=== PATIENT | female | born 1975 | race Caucasian/White ===

== ENCOUNTER 2016-08-24 18:15 | Emergency (ER) | payer OTHER ==
[~2016-08-24 18:15] MED LIST: /PREG100CA PO; ATOR1TAB19 PO; AZEL0.1S; Astepro; BACL10TA2 OR; CETI10TA OR; CRAN400T3 PO; CYCL10TA PO; FEXO30TA OR; GABA300C2 PO; HORIZANT PO; LISI5TAB PO; LYRI75CA PO; METF500T PO; MOBI15TA PO; NEUR400C OR; OMEP40CA2 PO; ROPI0.25 PO; SERT100T OR; TRAM37.5 PO; ULTR50TA PO; VERA180C3 OR; VERAMYST; Vitamin D PO; [UNRECOGNIZED DRUG - OTHER] OU; [UNRECOGNIZED DRUG - OTHER] SQ; colace PO; vitaminD PO; zoloft PO
[2016-08-24] MEDS ORDERED: traMADol 50 MG TAB As Ordered ONE ×2 (19:10→20:20)
--- NOTE | 2016-08-24 20:35 | EDDOCDS ---
Nurse's Notes [facility] Name: Adrianne Quinn Age: 41 yrs Sex: Female : 1975 Arrival Date: 08/24/2016 Time: 18:15 Bed PR [facility] MD: Diagnosis: Contusion of right elbow Presentation: 08/24 18:20 Presenting complaint: Patient states: Tripped over a pet gait last night injuring right mlb1 elbow. Adult Sepsis Screening: The patient does not have new or worsening altered mentation. Patient's respiratory rate is less than 22. Systolic blood pressure is greater than 100. Patient has a qSOFA score of 0- Negative Sepsis Screen. Suicide/Homicide risk assessment- the patient denies having any suicidal and/or homicidal ideations and does not present with any other emotional, behavioral or mental health complaints. 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 Transition of care: patient was not received from another setting of care. 18:20 Acuity: LUCI Level 4 mlb1 18:20 Method Of Arrival: Walkin/Carried/Asstd mlb1 Triage Assessment: 18:26 General: Appears in no apparent distress, Behavior is appropriate for age, cooperative. mlb1 Pain: Location: right elbow Pain currently is 8 out of 10 on a pain scale. HIV screening NA for this visit Offered previously. Historical: - Allergies: PENICILLINS; Avelox; SULFA (SULFONAMIDES); - Home Meds: 1. Victoza 2-Kishan subcutaneous subcutaneous 1.2 mL once daily 2. metformin 500 mg Oral tr24 1 tab once daily 3. Invokana 100 mg oral tab 1 tab once daily 4. lisinopril 5 mg Oral tab 1 tab once daily 5. atorvastatin 20 mg oral tab 1 tab once daily 6. Zoloft 150 mg Oral once daily 7. vitamin D 2000 unit daily 8. ropinirole 1 mg Qam 2mg Q pm oral tab 1 tab daily 9. omeprazole 20 mg Oral cpDR 1 cap once daily 10. Premarin 0.625 mg Oral tab 1 tab once daily - PMHx: Hypertension; Diabetes - NIDDM: controlled; restless leg syndrome; High Cholesterol; - PSHx: right foot spur; Hysterectomy; Sinus Surgery; Carpal Tunnel Repair- Right; right knee; - Social history: Smoking status: Patient states was never smoker of tobacco. No barriers to communication noted, The patient speaks fluent Latvian, Speaks appropriately for age. - Family history: Not pertinent. - : The pt / caregiver states he / she is not on anticoagulants. Home medication list is obtained from the patient. - Exposure Risk Screening:: None identified. Screenin:33 Screening information is obtained from the patient. Fall risk: No risks identified. ms18 Assistance ADL's: requires no assistance with activities of daily living. Abuse/DV Screen: The patient / caregiver reports he/she is: not in a situation that causes fear, pain or injury. Nutritional screening: No deficits noted. Advance Directives: There is no living will. home support is adequate. Assessment: 20:33 General: Appears in no apparent distress, comfortable, Behavior is appropriate for age, ms18 cooperative, pleasant. Pain: Location: right elbow Pain currently is 4 out of 10 on a pain scale. Neurological: No deficits noted. Respiratory: Airway is patent Respiratory effort is even, unlabored. Derm: Skin is pink, warm & dry. normal. Musculoskeletal: Range of motion intact in all extremities. No deformity noted Swelling absent. Vital Signs: 18:16 BP 151 / 87; Pulse 101; Resp 17; Temp 98.0(O); Pulse Ox 100% on R/A; Weight 108.41 kg lr2 (R); Height 5 ft. 3 in. (160.02 cm) (R); Pain 8/10; 18:24 BP 132 / 68 RA Sitting (auto/reg); Pulse 92; Resp 18; Temp 98.9(O); Pulse Ox 100% on jrd R/A; Weight 65.32 kg (R); Height 5 ft. 5 in. (165.10 cm) (R); Pain 0/10; 20:16 BP 136 / 67; Pulse 87; Resp 18; Temp 97.6(T); Pulse Ox 97% on R/A; Pain 6/10; ar3 18:24 Body Mass Index 23.96 (65.32 kg, 165.10 cm) rust Vitals: 18:16 Log In Time: August 24, 2016 at 18:15. lr2 18:24 Log In Time: August 24, 2016 at 18:16. rust ED Course: 18:16 Patient visited by Yamileth Zapata. lr2 18:16 Patient moved to Waiting lr2 18:17 Patient moved to Pre RCE lr2 18:20 Patient visited by Elpidio Martinez, NAEL. mlb1 18:20 Triage Initiated mlb1 18:25 Patient visited by Shun Greenwood, IDALIA. jrd 18:26 Patient visited by Elpidio Martinez, NAEL. mlb1 18:38 Patient moved to Triage 1 ms18 18:57 Geovany Gonzalez RPA-C is PHCP. ck7 18:57 Joce Luna DO is Attending Physician. ck7 18:57 Patient visited by Geovany Gonzalez RPA-C. ck7 19:14 Patient moved to TR1 ttb 19:17 [facility] Payment Agreement was scanned into [employer] and attached to record. jp5 19:35 Patient visited by Geovany Gonzalez RPA-C. ck7 20:12 Patient visited by Geovany Gonzalez RPA-C. ck7 20:12 Patient moved to PR1 / 25 lf1 20:17 Patient visited by Hellen Mcfadden PCA. ar3 20:17 [facility] is Referral Physician. ck7 20:33 The patient / caregiver is instructed regarding the plan of care and ED course. ms18 Accompanied by Significant Other, Patient has correct armband on for positive identification. Property sent home with patient. :Personal belongings accompany Pt. 20:33 No IV's were initiated during this patient's visit. No procedures done that require ms18 assistance. Administered Medications: 19:11 Drug: traMADol 50 mg [tramadol 50 mg tablet (1 tabs)] Route: PO; ttb 20:32 Follow up: Response: No Adverse Reaction; Pain is decreased ms18 20:32 Drug: traMADol 50mg- 4 pack 1 packets [tramadol 50 mg tablet (1 tabs)] {Co-Signature: ms18 lf1 (Ambar Espinal RN).} Route: PO; 20:32 Follow up: Response: Med's dispensed home ms18 Order Results: There are currently no results for this order. Outcome: 20:17 Discharge ordered by Provider. ck7 20:33 Discharge Assessment: Patient awake, alert and oriented x 3. No cognitive and/or ms18 functional deficits noted. Patient verbalized understanding of disposition instructions. patient administered narcotics - no. The following High Risk Discharge criteria are identified: None. Discharged to home ambulatory, with significant other. Condition: good Condition: stable Condition: improved. Discharge instructions given to patient, Instructed on discharge instructions, follow up and referral plans. medication usage, no driving heavy equipment, Demonstrated understanding of instructions, medications, Pt was receptive of discharge instructions/ teaching. Prescriptions given X 1. No special radiology studies were completed. 20:35 Patient left the ED. ms18 Signatures: Elpidio Martinez RN RN mlb1 Ambar Espinal,RN RN lf1 Hellen Mcfadden, THICKENER OPERATOR THICKENER OPERATOR ar3 Geovany Gonzalez, RPA-C RPA-Cck7 Aspen Sauceda RN RN khrisb Nerissa GonzalezRN RN ms18 Shun Greenwood, THICKENER OPERATOR THICKENER OPERATOR Jose Frost jp5 Yamileth Zapata lr2 Ambar Espinal RN lf1 FREEMAN
--- NOTE | 2016-08-24 20:35 | EDDOCDS ---
Physician Documentation [facility] Name: Adrianne Quinn Age: 41 yrs Sex: Female : 1975 Arrival Date: 08/24/2016 Time: 18:15 Bed PR Private MD: Disposition: 08/24/16 20:17 Discharged to Home/Self Care. Impression: Contusion of right elbow. - Condition is Stable. - Discharge Instructions: Elbow Contusion. - Prescriptions for Ultram 50 mg Oral Tablet - take 1 tablet by ORAL route every [address] HEWITT MDD: 4 tabs; 16 tablet. - Medication Reconciliation, Local Pharmacy Hours form. - Follow up: [facility]; When: 2 - 3 days; Reason: Recheck today's complaints, Continuance of care. - Problem is new. - Symptoms have improved. - Notes: USE ULTRAM, MATHEUS WRAP AND SLING INSTRUCTED, FOLLOW UP WITH [facility] IN 2-3 DAYS, RETURN TO THE ER IF THE SYMPTOMS WORSEN OR BECOME CONCERNING Historical: - Allergies: PENICILLINS; Avelox; SULFA (SULFONAMIDES); - Home Meds: 1. Victoza 2-Kishan subcutaneous subcutaneous 1.2 mL once daily 2. metformin 500 mg Oral tr24 1 tab once daily 3. Invokana 100 mg oral tab 1 tab once daily 4. lisinopril 5 mg Oral tab 1 tab once daily 5. atorvastatin 20 mg oral tab 1 tab once daily 6. Zoloft 150 mg Oral once daily 7. vitamin D 2000 unit daily 8. ropinirole 1 mg Qam 2mg Q pm oral tab 1 tab daily 9. omeprazole 20 mg Oral cpDR 1 cap once daily 10. Premarin 0.625 mg Oral tab 1 tab once daily - PMHx: Hypertension; Diabetes - NIDDM: controlled; restless leg syndrome; High Cholesterol; - PSHx: right foot spur; Hysterectomy; Sinus Surgery; Carpal Tunnel Repair- Right; right knee; - Social history: Smoking status: Patient states was never smoker of tobacco. No barriers to communication noted, The patient speaks fluent Amharic, Speaks appropriately for age. - Family history: Not pertinent. - : The pt / caregiver states he / she is not on anticoagulants. Home medication list is obtained from the patient. - Exposure Risk Screening:: None identified. Vital Signs: 08/24 18:16 BP 151 / 87; Pulse 101; Resp 17; Temp 98.0(O); Pulse Ox 100% on R/A; Weight 108.41 kg / lr2 239 lbs (R); Height 5 ft. 3 in. (160.02 cm) (R); Pain 8/10; 18:24 BP 132 / 68 RA Sitting (auto/reg); Pulse 92; Resp 18; Temp 98.9(O); Pulse Ox 100% on jrd R/A; Weight 65.32 kg / 144.01 lbs (R); Height 5 ft. 5 in. (165.10 cm) (R); Pain 0/10; 20:16 BP 136 / 67; Pulse 87; Resp 18; Temp 97.6(T); Pulse Ox 97% on R/A; Pain 6/10; ar3 18:24 Body Mass Index 23.96 (65.32 kg, 165.10 cm) jrd MDM: 19:07 traMADol 50 mg PO once ordered. ck7 19:08 Elbow, Complete Ordered. EDKS 19:17 [facility] Payment Agreement was scanned into [employer] and attached to record. jp5 19:17 Financial registration complete. jp5 20:16 Matheus Wrap ordered. ck7 20:16 Sling ordered. ck7 20:16 traMADol 50mg- 4 pack 1 packets PO Per package directions; Dispense with patient. Take ck7 per package instructions. ordered. Administered Medications: 19:11 Drug: traMADol 50 mg [tramadol 50 mg tablet (1 tabs)] Route: PO; ttb 20:32 Follow up: Response: No Adverse Reaction; Pain is decreased ms18 20:32 Drug: traMADol 50mg- 4 pack 1 packets [tramadol 50 mg tablet (1 tabs)] {Co-Signature: ms18 lf1 (Ambar Espinal RN).} Route: PO; 20:32 Follow up: Response: Med's dispensed home ms18 Signatures: Dispatcher [employer] EDMS Elpidio Martinez, RN RN mlb1 Geovany Gonzalez, RPA-C RPA-Cck7 Nerissa Gonzalez RN RN ms18 Jose Villegas jp5 Aspen Sauceda RN ttb Ambar Espinal RN lf1 The chart was reviewed and I authenticate all verbal orders and agree with the evaluation and treatment provided.Attachments: 19:17 [facility] Payment Agreement jp5 MTDD
--- NOTE | 2016-08-25 00:38 | REP ---
Clinical: Deformity and swelling . Technique: AP, lateral, bilateral oblique views of the right elbow. Findings: No acute fracture or dislocation is appreciated. Joint spaces and surrounding soft tissues demonstrate mild age-related changes. Lateral view demonstrates normal positioning to the anterior and posterior fat pads without evidence for effusion/hemarthrosis. No subcutaneous emphysema or foreign body identified. Impression: No acute fracture or dislocation. Mild age-related changes. Signed by Venancio Melton MD 08/25/2016 12:29 A
--- NOTE | 2016-08-26 21:36 | EDDOCDS ---
Physician Documentation [facility] Name: Adrianne Quinn Age: 41 yrs Sex: Female : 1975 Arrival Date: 08/24/2016 Time: 18:15 Bed PR Private MD: Disposition: 08/24/16 20:17 Discharged to Home/Self Care. Impression: Contusion of right elbow. - Condition is Stable. - Discharge Instructions: Elbow Contusion. - Prescriptions for Ultram 50 mg Oral Tablet - take 1 tablet by ORAL route every [address] HEWITT MDD: 4 tabs; 16 tablet. - Medication Reconciliation, Local Pharmacy Hours form. - Follow up: [facility]; When: 2 - 3 days; Reason: Recheck today's complaints, Continuance of care. - Problem is new. - Symptoms have improved. - Notes: USE ULTRAM, MATHEUS WRAP AND SLING INSTRUCTED, FOLLOW UP WITH [facility] IN 2-3 DAYS, RETURN TO THE ER IF THE SYMPTOMS WORSEN OR BECOME CONCERNING Historical: - Allergies: PENICILLINS; Avelox; SULFA (SULFONAMIDES); - Home Meds: 1. Victoza 2-Kishan subcutaneous subcutaneous 1.2 mL once daily 2. metformin 500 mg Oral tr24 1 tab once daily 3. Invokana 100 mg oral tab 1 tab once daily 4. lisinopril 5 mg Oral tab 1 tab once daily 5. atorvastatin 20 mg oral tab 1 tab once daily 6. Zoloft 150 mg Oral once daily 7. vitamin D 2000 unit daily 8. ropinirole 1 mg Qam 2mg Q pm oral tab 1 tab daily 9. omeprazole 20 mg Oral cpDR 1 cap once daily 10. Premarin 0.625 mg Oral tab 1 tab once daily - PMHx: Hypertension; Diabetes - NIDDM: controlled; restless leg syndrome; High Cholesterol; - PSHx: right foot spur; Hysterectomy; Sinus Surgery; Carpal Tunnel Repair- Right; right knee; - Social history: Smoking status: Patient states was never smoker of tobacco. No barriers to communication noted, The patient speaks fluent Czech, Speaks appropriately for age. - Family history: Not pertinent. - : The pt / caregiver states he / she is not on anticoagulants. Home medication list is obtained from the patient. - Exposure Risk Screening:: None identified. Vital Signs: 08/24 18:16 BP 151 / 87; Pulse 101; Resp 17; Temp 98.0(O); Pulse Ox 100% on R/A; Weight 108.41 kg / lr2 239 lbs (R); Height 5 ft. 3 in. (160.02 cm) (R); Pain 8/10; 18:24 BP 132 / 68 RA Sitting (auto/reg); Pulse 92; Resp 18; Temp 98.9(O); Pulse Ox 100% on jrd R/A; Weight 65.32 kg / 144.01 lbs (R); Height 5 ft. 5 in. (165.10 cm) (R); Pain 0/10; 20:16 BP 136 / 67; Pulse 87; Resp 18; Temp 97.6(T); Pulse Ox 97% on R/A; Pain 6/10; ar3 18:24 Body Mass Index 23.96 (65.32 kg, 165.10 cm) jrd MDM: 19:07 traMADol 50 mg PO once ordered. ck7 19:08 Elbow, Complete Ordered. EDMS 19:17 [facility] Payment Agreement was scanned into [employer] and attached to record. jp5 19:17 Financial registration complete. jp5 20:16 Matheus Wrap ordered. ck7 20:16 Sling ordered. ck7 20:16 traMADol 50mg- 4 pack 1 packets PO Per package directions; Dispense with patient. Take ck7 per package instructions. ordered. 08/25 10:31 T-Sheet-- Draft Copy was scanned into [employer] and attached to record. gb Administered Medications: 08/24 19:11 Drug: traMADol 50 mg [tramadol 50 mg tablet (1 tabs)] Route: PO; ttb 20:32 Follow up: Response: No Adverse Reaction; Pain is decreased ms18 20:32 Drug: traMADol 50mg- 4 pack 1 packets [tramadol 50 mg tablet (1 tabs)] {Co-Signature: ms18 lf1 (Ambar Espinal RN).} Route: PO; 20:32 Follow up: Response: Med's dispensed home ms18 Signatures: Dispatcher MedHost EDMS Lois Morfin, Reg Reg gb Elpidio Martinez, RN RN mlb1 Geovany Gonzalez, RPA-C RPA-Cck7 Nerissa Gonzalez,RN RN ms18 Jose Villegas jp5 Aspen Sauceda RN ttb Ambar Espinal RN lf1 The chart was reviewed and I authenticate all verbal orders and agree with the evaluation and treatment provided.Attachments: 19:17 [facility] Payment Agreement jp5 08/25 10:31 T-Sheet-- Draft Copy gb Chart Complete MTDD
--- NOTE | 2016-08-26 21:36 | EDDOCDS ---
Physician Documentation [facility] Name: Adrianne Quinn Age: 41 yrs Sex: Female : 1975 Arrival Date: 08/24/2016 Time: 18:15 Bed PR Private MD: Disposition: 08/24/16 20:17 Discharged to Home/Self Care. Impression: Contusion of right elbow. - Condition is Stable. - Discharge Instructions: Elbow Contusion. - Prescriptions for Ultram 50 mg Oral Tablet - take 1 tablet by ORAL route every [address] HEWITT MDD: 4 tabs; 16 tablet. - Medication Reconciliation, Local Pharmacy Hours form. - Follow up: [facility]; When: 2 - 3 days; Reason: Recheck today's complaints, Continuance of care. - Problem is new. - Symptoms have improved. - Notes: USE ULTRAM, MATHEUS WRAP AND SLING INSTRUCTED, FOLLOW UP WITH [facility] IN 2-3 DAYS, RETURN TO THE ER IF THE SYMPTOMS WORSEN OR BECOME CONCERNING Historical: - Allergies: PENICILLINS; Avelox; SULFA (SULFONAMIDES); - Home Meds: 1. Victoza 2-Kishan subcutaneous subcutaneous 1.2 mL once daily 2. metformin 500 mg Oral tr24 1 tab once daily 3. Invokana 100 mg oral tab 1 tab once daily 4. lisinopril 5 mg Oral tab 1 tab once daily 5. atorvastatin 20 mg oral tab 1 tab once daily 6. Zoloft 150 mg Oral once daily 7. vitamin D 2000 unit daily 8. ropinirole 1 mg Qam 2mg Q pm oral tab 1 tab daily 9. omeprazole 20 mg Oral cpDR 1 cap once daily 10. Premarin 0.625 mg Oral tab 1 tab once daily - PMHx: Hypertension; Diabetes - NIDDM: controlled; restless leg syndrome; High Cholesterol; - PSHx: right foot spur; Hysterectomy; Sinus Surgery; Carpal Tunnel Repair- Right; right knee; - Social history: Smoking status: Patient states was never smoker of tobacco. No barriers to communication noted, The patient speaks fluent Mongolian, Speaks appropriately for age. - Family history: Not pertinent. - : The pt / caregiver states he / she is not on anticoagulants. Home medication list is obtained from the patient. - Exposure Risk Screening:: None identified. Vital Signs: 08/24 18:16 BP 151 / 87; Pulse 101; Resp 17; Temp 98.0(O); Pulse Ox 100% on R/A; Weight 108.41 kg / lr2 239 lbs (R); Height 5 ft. 3 in. (160.02 cm) (R); Pain 8/10; 18:24 BP 132 / 68 RA Sitting (auto/reg); Pulse 92; Resp 18; Temp 98.9(O); Pulse Ox 100% on jrd R/A; Weight 65.32 kg / 144.01 lbs (R); Height 5 ft. 5 in. (165.10 cm) (R); Pain 0/10; 20:16 BP 136 / 67; Pulse 87; Resp 18; Temp 97.6(T); Pulse Ox 97% on R/A; Pain 6/10; ar3 18:24 Body Mass Index 23.96 (65.32 kg, 165.10 cm) jrd MDM: 19:07 traMADol 50 mg PO once ordered. ck7 19:08 Elbow, Complete Ordered. EDMS 19:17 [facility] Payment Agreement was scanned into [employer] and attached to record. jp5 19:17 Financial registration complete. jp5 20:16 Matheus Wrap ordered. ck7 20:16 Sling ordered. ck7 20:16 traMADol 50mg- 4 pack 1 packets PO Per package directions; Dispense with patient. Take ck7 per package instructions. ordered. 08/25 10:31 T-Sheet-- Draft Copy was scanned into [employer] and attached to record. gb Administered Medications: 08/24 19:11 Drug: traMADol 50 mg [tramadol 50 mg tablet (1 tabs)] Route: PO; ttb 20:32 Follow up: Response: No Adverse Reaction; Pain is decreased ms18 20:32 Drug: traMADol 50mg- 4 pack 1 packets [tramadol 50 mg tablet (1 tabs)] {Co-Signature: ms18 lf1 (Ambar Espinal RN).} Route: PO; 20:32 Follow up: Response: Med's dispensed home ms18 Signatures: Dispatcher [employer] EDMS Lois Morfin, Reg Reg gb Elpidio Martinez, RN RN mlb1 Geovany Gonzalez, RPA-C RPA-Cck7 Nerissa Gonzalez,RN RN ms18 Jose Villegas jp5 Aspen aSuceda RN ttb Ambar Espinal RN lf1 The chart was reviewed and I authenticate all verbal orders and agree with the evaluation and treatment provided.Attachments: 19:17 [facility] Payment Agreement jp5 08/25 10:31 T-Sheet-- Draft Copy gb Chart Complete MTDD
--- NOTE | 2016-08-26 21:36 | EDDOCDS ---
Nurse's Notes [facility] Name: Adrianne Quinn Age: 41 yrs Sex: Female : 1975 Arrival Date: 08/24/2016 Time: 18:15 Bed PR [facility] MD: Diagnosis: Contusion of right elbow Presentation: 08/24 18:20 Presenting complaint: Patient states: Tripped over a pet gait last night injuring right mlb1 elbow. Adult Sepsis Screening: The patient does not have new or worsening altered mentation. Patient's respiratory rate is less than 22. Systolic blood pressure is greater than 100. Patient has a qSOFA score of 0- Negative Sepsis Screen. Suicide/Homicide risk assessment- the patient denies having any suicidal and/or homicidal ideations and does not present with any other emotional, behavioral or mental health complaints. 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 Transition of care: patient was not received from another setting of care. 18:20 Acuity: LUCI Level 4 mlb1 18:20 Method Of Arrival: Walkin/Carried/Asstd mlb1 Triage Assessment: 18:26 General: Appears in no apparent distress, Behavior is appropriate for age, cooperative. mlb1 Pain: Location: right elbow Pain currently is 8 out of 10 on a pain scale. HIV screening NA for this visit Offered previously. Historical: - Allergies: PENICILLINS; Avelox; SULFA (SULFONAMIDES); - Home Meds: 1. Victoza 2-Kishan subcutaneous subcutaneous 1.2 mL once daily 2. metformin 500 mg Oral tr24 1 tab once daily 3. Invokana 100 mg oral tab 1 tab once daily 4. lisinopril 5 mg Oral tab 1 tab once daily 5. atorvastatin 20 mg oral tab 1 tab once daily 6. Zoloft 150 mg Oral once daily 7. vitamin D 2000 unit daily 8. ropinirole 1 mg Qam 2mg Q pm oral tab 1 tab daily 9. omeprazole 20 mg Oral cpDR 1 cap once daily 10. Premarin 0.625 mg Oral tab 1 tab once daily - PMHx: Hypertension; Diabetes - NIDDM: controlled; restless leg syndrome; High Cholesterol; - PSHx: right foot spur; Hysterectomy; Sinus Surgery; Carpal Tunnel Repair- Right; right knee; - Social history: Smoking status: Patient states was never smoker of tobacco. No barriers to communication noted, The patient speaks fluent Marshallese, Speaks appropriately for age. - Family history: Not pertinent. - : The pt / caregiver states he / she is not on anticoagulants. Home medication list is obtained from the patient. - Exposure Risk Screening:: None identified. Screenin:33 Screening information is obtained from the patient. Fall risk: No risks identified. ms18 Assistance ADL's: requires no assistance with activities of daily living. Abuse/DV Screen: The patient / caregiver reports he/she is: not in a situation that causes fear, pain or injury. Nutritional screening: No deficits noted. Advance Directives: There is no living will. home support is adequate. Assessment: 20:33 General: Appears in no apparent distress, comfortable, Behavior is appropriate for age, ms18 cooperative, pleasant. Pain: Location: right elbow Pain currently is 4 out of 10 on a pain scale. Neurological: No deficits noted. Respiratory: Airway is patent Respiratory effort is even, unlabored. Derm: Skin is pink, warm & dry. normal. Musculoskeletal: Range of motion intact in all extremities. No deformity noted Swelling absent. Vital Signs: 18:16 BP 151 / 87; Pulse 101; Resp 17; Temp 98.0(O); Pulse Ox 100% on R/A; Weight 108.41 kg lr2 (R); Height 5 ft. 3 in. (160.02 cm) (R); Pain 8/10; 18:24 BP 132 / 68 RA Sitting (auto/reg); Pulse 92; Resp 18; Temp 98.9(O); Pulse Ox 100% on jrd R/A; Weight 65.32 kg (R); Height 5 ft. 5 in. (165.10 cm) (R); Pain 0/10; 20:16 BP 136 / 67; Pulse 87; Resp 18; Temp 97.6(T); Pulse Ox 97% on R/A; Pain 6/10; ar3 18:24 Body Mass Index 23.96 (65.32 kg, 165.10 cm) [facility] Vitals: 18:16 Log In Time: August 24, 2016 at 18:15. lr2 18:24 Log In Time: August 24, 2016 at 18:16. [facility] ED Course: 18:16 Patient visited by Yamileth Zapata. lr2 18:16 Patient moved to Waiting lr2 18:17 Patient moved to Pre RCE lr2 18:20 Patient visited by Elpidio Martinez, RN. mlb1 18:20 Triage Initiated mlb1 18:25 Patient visited by Shun Greenwood, IDALIA. jrd 18:26 Patient visited by Elpidio Martinez, NAEL. mlb1 18:38 Patient moved to Triage 1 ms18 18:57 Geovany Gonzalez RPA-C is PHCP. ck7 18:57 Joce Luna DO is Attending Physician. ck7 18:57 Patient visited by Geovany Gonzalez RPA-C. ck7 19:14 Patient moved to TR1 ttb 19:17 [facility] Payment Agreement was scanned into [employer] ([employer]) and attached to record. jp5 19:35 Patient visited by Geovany Gonzalez RPA-C. ck7 20:12 Patient visited by Geovany Gonzalez RPA-C. ck7 20:12 Patient moved to PR1 / 25 lf1 20:17 Patient visited by Hellen Mcfadden PCA. ar3 20:17 [facility] is Referral Physician. ck7 20:33 The patient / caregiver is instructed regarding the plan of care and ED course. ms18 Accompanied by Significant Other, Patient has correct armband on for positive identification. Property sent home with patient. :Personal belongings accompany Pt. 20:33 No IV's were initiated during this patient's visit. No procedures done that require ms18 assistance. 08/25 01:00 Elbow, Complete Returned. EDMS 10:31 T-Sheet-- Draft Copy was scanned into [employer] ([employer]) and attached to record. gb Administered Medications: 08/24 19:11 Drug: traMADol 50 mg [tramadol 50 mg tablet (1 tabs)] Route: PO; ttb 20:32 Follow up: Response: No Adverse Reaction; Pain is decreased ms18 20:32 Drug: traMADol 50mg- 4 pack 1 packets [tramadol 50 mg tablet (1 tabs)] {Co-Signature: ms18 lf1 (Ambar Espinal RN).} Route: PO; 20:32 Follow up: Response: Med's dispensed home ms18 Order Results: Radiology Order: Elbow, Complete Test: Elbow, Complete REASON FOR EXAMINATION: Deformity/Swelling; Clinical: Deformity and swelling .; ; Technique: AP, lateral, bilateral oblique views of the right elbow.; ; Findings:; No acute fracture or dislocation is appreciated. Joint spaces and surrounding; soft tissues demonstrate mild age-related changes. Lateral view demonstrates; normal positioning to the anterior and posterior fat pads without evidence for; effusion/hemarthrosis. No subcutaneous emphysema or foreign body identified.; ; Impression:; No acute fracture or dislocation.; Mild age-related changes.; ; ; Signed by; Venancio Melton MD 08/25/2016 12:29 A; Outcome: 20:17 Discharge ordered by Provider. ck7 20:33 Discharge Assessment: Patient awake, alert and oriented x 3. No cognitive and/or ms18 functional deficits noted. Patient verbalized understanding of disposition instructions. patient administered narcotics - no. The following High Risk Discharge criteria are identified: None. Discharged to home ambulatory, with significant other. Condition: good Condition: stable Condition: improved. Discharge instructions given to patient, Instructed on discharge instructions, follow up and referral plans. medication usage, no driving heavy equipment, Demonstrated understanding of instructions, medications, Pt was receptive of discharge instructions/ teaching. Prescriptions given X 1. No special radiology studies were completed. 20:35 Patient left the ED. ms18 Signatures: Dispatcher [employer] EDMS Lois Morfin, Reg Reg Elpidio Hope RN RN mlb1 Ambar Espinal,RN RN lf1 Hellen Mcfadden, SNACK BAR COOK SNACK BAR COOK ar3 Geovany Gonzalez, RPA-C RPA-[id number] Aspen Sauceda RN RN ttb Smith, MalloryRN RN ms18 Shun Greenwood, SNACK BAR COOK SNACK BAR COOK d Jose Villegas jp5 Yamileth Zapata lr2 Ambar Espinal RN lf1 Chart Complete MTDD
== END 2016-08-24 20:35 | disposition home or self-care (01) ==
LOC: M ED 18:15
DX: S50.01XA Contusion of right elbow, initial encounter (principal); W01.0XXA Fall on same level from slipping, tripping and stumbling without subsequent striking against object, initial encounter; Y92.018 Other place in single-family (private) house as the place of occurrence of the external cause; Y93.89 Activity, other specified; Y99.8 Other external cause status; I10 Essential (primary) hypertension; E11.9 Type 2 diabetes mellitus without complications; E78.5 Hyperlipidemia, unspecified; G25.81 Restless legs syndrome; Z79.899 Other long term (current) drug therapy; Z79.84 Long term (current) use of oral hypoglycemic drugs; Z88.0 Allergy status to penicillin; Z88.2 Allergy status to sulfonamides

== ENCOUNTER → 2016-12-06 | Outpatient (CLI) | payer OTHER ==
[2016-12-06 18:46] LABS: ALBUMIN 3.7 GM/DL (3.2-5.2); ALBUMIN/GLOBULIN RATIO 1.09 (1.00-1.93); ALKALINE PHOSPHATASE 82 U/L (45-117); ALT/SGPT 35 U/L (12-78); ANION GAP 8 MEQ/L (8-16); AST/SGOT 15 U/L (15-37); BILIRUBIN,TOTAL 0.5 MG/DL (0.2-1.0); BLOOD UREA NITROGEN 7 MG/DL (7-18); CALCIUM LEVEL 8.6 MG/DL (8.5-10.1); CARBON DIOXIDE LEVEL 28 MEQ/L (21-32); CHLORIDE LEVEL 104 MEQ/L (98-107); CHOLESTEROL LEVEL 184 MG/DL (<200); CREATININE FOR GFR 0.72 MG/DL (0.55-1.02); GLOMERULAR FILTRATION RATE > 60.0 (>58); GLUCOSE, FASTING 146 MG/DL (70-105); POTASSIUM SERUM 4.3 MEQ/L (3.5-5.1); SODIUM LEVEL 140 MEQ/L (136-145); TOTAL PROTEIN 7.1 GM/DL (6.4-8.2); TRIGLYCERIDES LEVEL 99 MG/DL (<150)
== END ==
LOC: M WUC 09:42
PROVIDERS: ATTEND Physician Assistant
DX: E78.5 Hyperlipidemia, unspecified (principal); I10 Essential (primary) hypertension; E11.9 Type 2 diabetes mellitus without complications

== ENCOUNTER → 2017-03-05 | Outpatient (CLI) | payer OTHER ==
--- NOTE | 2017-03-05 16:11 | REPMRS ---
Patient History The patient states she had a clinical breast exam in 2016. Patient is postmenopausal. No known family history of cancer. Digital Mammo Screening Bilat: March 05, 2017 - Exam #: [id number] Bilateral CC and MLO view(s) were taken. Technologist: Chelsie Lincoln, Technologist Prior study comparison: January 28, 2016, digital bilateral screening mammo, performed at [facility]. May 03, 2013, left breast digital mammo diagnostic unilateral performed at [facility]. FINDINGS: The breast tissue is almost entirely fat. There has been no change in the appearance of the mammogram from the prior studies. There is no interval development of dominant mass, architectural distortion, or clustered microcalcification typical of malignancy. ASSESSMENT: BI-RADS/ACR category 1 mammogram. Negative. Recommendation Routine screening mammogram of both breasts in 1 year (for women over age 40). This mammogram was interpreted with the aid of an FDA-approved computer-aided dectection system. Electronically Signed By: Kt Valdez MD 03/05/17 [id number]
== END ==
LOC: M RAD 15:36
PROVIDERS: ATTEND Obstetrics & Gynecology Obstetrics
DX: Z12.31 Encounter for screening mammogram for malignant neoplasm of breast (principal)

== ENCOUNTER → 2017-10-19 | Outpatient (CLI) | payer OTHER ==
[2017-10-19 08:46] LABS: BASO % 0.7 % (0.0-1.0); EOS # 0.1 10^3/uL (0.0-0.50); EOS % 1.6 % (0.0-3.0); HEMATOCRIT 40.1 % (36.0-47.0); HEMOGLOBIN 13.3 g/dl (12.0-15.5); IMMATURE GRANULOCYTE % 0.4 % (0-3.0); LYMPH # 1.6 10^3/uL (1.5-4.5); LYMPH % 28.8 % (24.0-44.0); MEAN CORPUSCULAR HEMOGLOBIN 28.2 pg (27.0-33.0); MEAN CORPUSCULAR HGB CONC 33.2 g/dl (32.0-36.5); MONO # 0.5 10^3/uL (0.0-0.8); MONO % 9.7 % (0.0-5.0); NEUTROPHILS # 3.3 10^3/uL (1.8-7.7); NEUTROPHILS % 58.8 % (36.0-66.0); PLATELET COUNT, AUTOMATED 238 10^3/uL (150-450); RED BLOOD COUNT 4.72 10^6/uL (4.00-5.40); RED CELL DISTRIBUTION WIDTH 13.6 % (11.5-14.5); WHITE BLOOD COUNT 5.6 10^3/uL (4.0-10.0)
[2017-10-19 09:16] LABS: ALBUMIN 3.7 GM/DL (3.2-5.2); ALBUMIN/GLOBULIN RATIO 1.09 (1.00-1.93); ALKALINE PHOSPHATASE 72 U/L (45-117); ALT/SGPT 34 U/L (12-78); ANION GAP 4 MEQ/L (8-16); AST/SGOT 17 U/L (7-37); BILIRUBIN,TOTAL 0.8 MG/DL (0.2-1.0); BLOOD UREA NITROGEN 8 MG/DL (7-18); CALCIUM LEVEL 8.7 MG/DL (8.5-10.1); CARBON DIOXIDE LEVEL 31 MEQ/L (21-32); CHLORIDE LEVEL 108 MEQ/L (98-107); CHOLESTEROL LEVEL 163 MG/DL (<200); CHOLESTEROL RISK RATIO 3.075 (<5); CREATININE FOR GFR 0.66 MG/DL (0.55-1.30); GLOMERULAR FILTRATION RATE > 60.0 (>58); GLUCOSE, FASTING 178 MG/DL (70-100); HDL CHOLESTEROL 53 MG/DL (>40); LDL CHOLESTEROL 84.4 MG/DL (<100); NON-HDL-C 110 MG/DL; POTASSIUM SERUM 4.2 MEQ/L (3.5-5.1); SODIUM LEVEL 143 MEQ/L (136-145); TOTAL PROTEIN 7.1 GM/DL (6.4-8.2); TRIGLYCERIDES LEVEL 128 MG/DL (<150)
[2017-10-19 11:46] LABS: ESTIMATED AVERAGE GLUCOSE 183 MG/DL (60-110)
== END ==
LOC: M LAB 08:25
DX: I10 Essential (primary) hypertension (principal); E11.9 Type 2 diabetes mellitus without complications; F33.1 Major depressive disorder, recurrent, moderate; E78.5 Hyperlipidemia, unspecified; G47.30 Sleep apnea, unspecified
CPT/HCPCS: 84443

== ENCOUNTER 2017-10-27 07:17 | Day surgery (SDC) | payer OTHER ==
[2017-10-27] MEDS: NS 1,000 ML IV (07:30)
[2017-10-27] MEDS ORDERED: LIDOCAINE 2% INJ 100 MG/5 ML SDV (FOR ANES.) As Ordered (09:20)
[2017-10-27] MEDS ORDERED: PROPOFOL 500 MG/50 ML VIAL As Ordered (09:20)
[2017-10-27] MEDS ORDERED: fentaNYL 100 MCG/2 ML INJECTION (J3010) As Ordered (09:20)
[2017-10-27] MEDS ORDERED: PROPOFOL 200 MG/20 ML VIAL As Ordered (09:28)
== END 2017-10-27 10:16 | disposition home or self-care (01) ==
LOC: M OPP 07:17
DX: R19.4 Change in bowel habit (principal); R63.4 Abnormal weight loss; K52.9 Noninfective gastroenteritis and colitis, unspecified; K63.5 Polyp of colon; K29.70 Gastritis, unspecified, without bleeding; K31.7 Polyp of stomach and duodenum; R10.13 Epigastric pain; R11.2 Nausea with vomiting, unspecified; I10 Essential (primary) hypertension; G47.30 Sleep apnea, unspecified; E11.9 Type 2 diabetes mellitus without complications; E78.5 Hyperlipidemia, unspecified; K21.9 Gastro-esophageal reflux disease without esophagitis; Z79.899 Other long term (current) drug therapy; Z88.0 Allergy status to penicillin; Z88.8 Allergy status to other drugs, medicaments and biological substances; Z96.651 Presence of right artificial knee joint
CPT/HCPCS: 43239

== ENCOUNTER → 2018-01-26 | Outpatient (CLI) | payer OTHER ==
[2018-01-26 10:40] LABS: ALBUMIN 3.6 GM/DL (3.2-5.2); ALBUMIN/GLOBULIN RATIO 1.16 (1.00-1.93); ALKALINE PHOSPHATASE 71 U/L (45-117); ALT/SGPT 44 U/L (12-78); ANION GAP 7 MEQ/L (8-16); AST/SGOT 19 U/L (7-37); BILIRUBIN,TOTAL 0.6 MG/DL (0.2-1.0); BLOOD UREA NITROGEN 9 MG/DL (7-18); CALCIUM LEVEL 8.5 MG/DL (8.5-10.1); CARBON DIOXIDE LEVEL 31 MEQ/L (21-32); CHLORIDE LEVEL 104 MEQ/L (98-107); CHOLESTEROL LEVEL 176 MG/DL (<200); CREATININE FOR GFR 0.63 MG/DL (0.55-1.30); GLOMERULAR FILTRATION RATE > 60.0 (>58); GLUCOSE, FASTING 215 MG/DL (70-100); HDL CHOLESTEROL 50 MG/DL (>40); NON-HDL-C 126 MG/DL; POTASSIUM SERUM 3.9 MEQ/L (3.5-5.1); SODIUM LEVEL 142 MEQ/L (136-145); TOTAL PROTEIN 6.7 GM/DL (6.4-8.2); TRIGLYCERIDES LEVEL 175 MG/DL (<150)
[2018-01-26 11:40] LABS: ESTIMATED AVERAGE GLUCOSE 183 MG/DL (60-110)
== END ==
LOC: M LAB 08:25
DX: E78.5 Hyperlipidemia, unspecified (principal); I10 Essential (primary) hypertension; E11.9 Type 2 diabetes mellitus without complications
CPT/HCPCS: 80053

== ENCOUNTER → 2018-05-09 | Outpatient (CLI) | payer OTHER ==
[2018-05-09 10:39] LABS: BASO % 0.8 % (0.0-1.0); EOS # 0.1 10^3/uL (0.0-0.50); EOS % 2.5 % (0.0-3.0); HEMATOCRIT 40.8 % (36.0-47.0); HEMOGLOBIN 13.5 g/dl (12.0-15.5); IMMATURE GRANULOCYTE % 0.2 % (0-3.0); LYMPH # 1.5 10^3/uL (1.5-4.5); LYMPH % 29.4 % (24.0-44.0); MEAN CORPUSCULAR HEMOGLOBIN 28.8 pg (27.0-33.0); MEAN CORPUSCULAR HGB CONC 33.1 g/dl (32.0-36.5); MONO # 0.4 10^3/uL (0.0-0.8); MONO % 7.9 % (0.0-5.0); NEUTROPHILS # 3.1 10^3/uL (1.8-7.7); NEUTROPHILS % 59.2 % (36.0-66.0); PLATELET COUNT, AUTOMATED 224 10^3/uL (150-450); RED BLOOD COUNT 4.69 10^6/uL (4.00-5.40); RED CELL DISTRIBUTION WIDTH 13.2 % (11.5-14.5); WHITE BLOOD COUNT 5.2 10^3/uL (4.0-10.0)
[2018-05-09 11:07] LABS: ALBUMIN/GLOBULIN RATIO 1.38 (1.00-1.93); ALKALINE PHOSPHATASE 81 U/L (45-117); ALT/SGPT 49 U/L (12-78); ANION GAP 6 MEQ/L (8-16); AST/SGOT 20 U/L (7-37); BLOOD UREA NITROGEN 7 MG/DL (7-18); CALCIUM LEVEL 8.9 MG/DL (8.5-10.1); CARBON DIOXIDE LEVEL 30 MEQ/L (21-32); CHLORIDE LEVEL 106 MEQ/L (98-107); CHOLESTEROL LEVEL 232 MG/DL (<200); CHOLESTEROL RISK RATIO 4.734 (<5); CREATININE FOR GFR 0.67 MG/DL (0.55-1.30); ESTIMATED AVERAGE GLUCOSE 163 MG/DL (60-110); GLOMERULAR FILTRATION RATE > 60.0 (>58); GLUCOSE, FASTING 148 MG/DL (70-100); HDL CHOLESTEROL 49 MG/DL (>40); HEMOGLOBIN A1c 7.3 %; LDL CHOLESTEROL 156 MG/DL (<100); NON-HDL-C 183 MG/DL; POTASSIUM SERUM 4.2 MEQ/L (3.5-5.1); SODIUM LEVEL 142 MEQ/L (136-145); TOTAL PROTEIN 6.9 GM/DL (6.4-8.2); TRIGLYCERIDES LEVEL 136 MG/DL (<150)
== END ==
LOC: M LAB 09:53
DX: E78.5 Hyperlipidemia, unspecified (principal); E11.9 Type 2 diabetes mellitus without complications
CPT/HCPCS: 80053

== ENCOUNTER → 2018-08-19 | Outpatient (CLI) | payer OTHER ==
[~2018-08-19] MED LIST changes: +ATOR1TAB21; +INVO100T; +MAXA10TA14 PO; +OMEP20CA3; +ONDA4TAB5; +PREM0.9T; +ROPI1TAB; +TRUL10IN; +VITA-122
[2018-08-19 09:14] LABS: ALBUMIN 3.6 GM/DL (3.2-5.2); ALT/SGPT 37 U/L (12-78); BILIRUBIN,TOTAL 0.5 MG/DL (0.2-1.0); BLOOD UREA NITROGEN 10 MG/DL (7-18); CALCIUM LEVEL 8.5 MG/DL (8.5-10.1); CARBON DIOXIDE LEVEL 28 MEQ/L (21-32); CHLORIDE LEVEL 106 MEQ/L (98-107); CHOLESTEROL LEVEL 198 MG/DL (<200); CREATININE FOR GFR 0.63 MG/DL (0.55-1.30); GLOMERULAR FILTRATION RATE > 60.0 (>58); GLUCOSE, FASTING 166 MG/DL (70-100); HDL CHOLESTEROL 49 MG/DL (>40); LDL CHOLESTEROL 130 MG/DL (<100); NON-HDL-C 149 MG/DL; POTASSIUM SERUM 4.2 MEQ/L (3.5-5.1); SODIUM LEVEL 141 MEQ/L (136-145); TOTAL PROTEIN 6.7 GM/DL (6.4-8.2); TRIGLYCERIDES LEVEL 96 MG/DL (<150)
[2018-08-19 10:45] LABS: HEMOGLOBIN A1c 7.3 %
== END ==
LOC: M LAB 07:49
PROVIDERS: ATTEND Physician Assistant
DX: I10 Essential (primary) hypertension (principal); E11.9 Type 2 diabetes mellitus without complications

== ENCOUNTER 2018-11-01 19:13 | Day surgery (SDC) | payer OTHER ==
[~2018-11-01] VITALS: Ht 160 cm; Wt 98.2 kg
[~2018-11-01 19:13] MED LIST changes: -/PREG100CA PO; +LYRI100C PO
[2018-11-01 20:04] LABS: APPEARANCE, URINE HAZY (CLEAR); BACTERIA, URINE AUTO NEGATIVE (NEGATIVE); BILIRUBIN, URINE AUTO NEGATIVE (NEGATIVE); BLOOD, URINE BLOOD NEGATIVE (NEGATIVE); COLOR, URINE YELLOW (YELLOW); GLUCOSE, URINE (UA) AUTO NEGATIVE (NEGATIVE); KETONE, URINE AUTO TRACE mg/dL (NEGATIVE); LEUKOCYTE ESTERASE, URINE AUTO TRACE (NEGATIVE); MUCUS, URINE SMALL (NEGATIVE); NITRITE, URINE AUTO NEGATIVE (NEGATIVE); PROTEIN, URINE AUTO NEGATIVE (NEGATIVE); RBC, URINE AUTO 2 /HPF (0-3); SPECIFIC GRAVITY URINE AUTO 1.025 (1.002-1.035); SQUAMOUS EPITHELIAL CELL UR AU 4 /HPF (0-6); WBC, URINE AUTO 1 /HPF (0-3)
[2018-11-01] MEDS ORDERED: NS 1,000 ML IV SCH (20:40)
[2018-11-01] MEDS ORDERED: KETOROLAC 30 MG/ML VIAL (J1885) IV ONE (20:45)
[2018-11-01] MEDS ORDERED: ONDANSETRON 4MG/2ML VIAL (J2405) IV ONE (20:45)
[2018-11-01] MEDS ORDERED: PANTOPRAZOLE 40MG INJ (PROTONIX) (C9113) IV ONE (20:45)
[2018-11-01 21:01] LABS: BASO % 0.3 % (0.0-1.0); EOS # 0.1 10^3/uL (0.0-0.50); EOS % 1.5 % (0.0-3.0); HEMATOCRIT 41.7 % (36.0-47.0); HEMOGLOBIN 13.8 g/dl (12.0-15.5); LYMPH # 2.4 10^3/uL (1.5-4.5); LYMPH % 31.4 % (24.0-44.0); MEAN CORPUSCULAR HEMOGLOBIN 29.4 pg (27.0-33.0); MEAN CORPUSCULAR HGB CONC 33.1 g/dl (32.0-36.5); MEAN CORPUSCULAR VOLUME 88.9 fl (80.0-96.0); MONO # 0.6 10^3/uL (0.0-0.8); MONO % 7.9 % (0.0-5.0); NEUTROPHILS # 4.4 10^3/uL (1.8-7.7); NEUTROPHILS % 58.8 % (36.0-66.0); PLATELET COUNT, AUTOMATED 241 10^3/uL (150-450); RED BLOOD COUNT 4.69 10^6/uL (4.00-5.40); WHITE BLOOD COUNT 7.6 10^3/uL (4.0-10.0)
[2018-11-01 21:29] LABS: ALBUMIN 4.1 GM/DL (3.2-5.2); ALT/SGPT 35 U/L (12-78); BILIRUBIN,DIRECT 0.2 MG/DL (0.0-0.2); BILIRUBIN,TOTAL 0.8 MG/DL (0.2-1.0); BLOOD UREA NITROGEN 9 MG/DL (7-18); CALCIUM LEVEL 8.9 MG/DL (8.5-10.1); CARBON DIOXIDE LEVEL 30 MEQ/L (21-32); CHLORIDE LEVEL 104 MEQ/L (98-107); CREATININE FOR GFR 0.74 MG/DL (0.55-1.30); GLOMERULAR FILTRATION RATE > 60.0 (>58); GLUCOSE, FASTING 139 MG/DL (70-100); LIPASE 142 U/L (73-393); POTASSIUM SERUM 4.1 MEQ/L (3.5-5.1); SODIUM LEVEL 140 MEQ/L (136-145); TOTAL PROTEIN 7.3 GM/DL (6.4-8.2)
--- NOTE | 2018-11-01 22:36 | REPVR ---
EXAM: CT Abdomen and Pelvis Without Contrast EXAM DATE/TIME: 11/01/18 (9:12pm) CLINICAL HISTORY: 43 year old female with RLQ pain TECHNIQUE: Imaging protocol: Axial computed tomography images of the abdomen and pelvis without contrast. Coronal and sagittal reformatted images were created and reviewed. Radiation optimization: All CT scans at this facility use at least one of these dose optimization techniques: automated exposure control; mA and/or kV adjustment per patient size (includes targeted exams where dose is matched to clinical indication); or iterative reconstruction. COMPARISON: US PELVIS of 01/02/12 FINDINGS: ABDOMEN: Liver: Normal. No solid mass. Gallbladder and bile ducts: Normal. No calcified stones. No ductal dilatation. Pancreas: Normal. No ductal dilatation. Spleen: Prominent spleen. Adrenals: Normal. No mass. Kidneys and ureters: Normal. No hydronephrosis. Stomach and bowel: Normal. No bowel obstruction. No mucosal thickening. Appendix: Thickened, inflamed appendix, with [id number]-[id number] adjacent RLQ inflammation. No abscess. No bowel obstruction. No free air. PELVIS: Bladder: Small amount of hyperdense material layers dependently (probable debris). Reproductive: Unremarkable as visualized. ABDOMEN and PELVIS: Intraperitoneal space: Normal. No free air. No significant fluid collection. Bones/joints: No acute fracture nor dislocation. Soft tissues: Unremarkable. Vasculature: Normal. No abdominal aortic aneurysm. Lymph nodes: Normal. No enlarged lymph nodes. IMPRESSION: Acute appendicitis, with [id number] adjacent RLQ inflammation. No abscess. No bowel obstruction. No free air. Probable debris layering dependently in the urinary bladder. No hydronephrosis. Electronically signed by: Deanna Murillo On 11/01/2018 22:36:39 PM
[2018-11-01] MEDS ORDERED: ceFAZolin SOD 1 GM in D5W MINI-BAG PLUS 50 ML IV ONE (22:45)
[2018-11-01] MEDS ORDERED: OMEP-218 PO (23:11)
[2018-11-01] MEDS ORDERED: VERA180C3 PO (23:11)
[2018-11-01] MEDS ORDERED: METF-839 PO (23:11)
[2018-11-01] MEDS ORDERED: TRUL0.5I SC (23:11)
[2018-11-01] MEDS ORDERED: LISI-538 PO (23:11)
[2018-11-01] MEDS ORDERED: SERT-138 PO (23:11)
[2018-11-01] MEDS ORDERED: SERT-155 PO (23:11)
[2018-11-01 23:26] LABS: INR 1.01; PROTHROMBIN TIME 13.4 SECONDS (12.1-14.4)
[2018-11-01] MEDS: LR 1,000 ML IV SCH (23:26)
[2018-11-01] MEDS ORDERED: ROCURONIUM BROMIDE 50 MG/5 ML VIAL As Ordered ONE (23:37)
[2018-11-01] MEDS ORDERED: dexameTHASONE 4 MG/ML 1ML VIAL (J1100) As Ordered ONE (23:37)
[2018-11-01] MEDS ORDERED: ONDANSETRON 4MG/2ML VIAL (J2405) As Ordered ONE (23:37)
[2018-11-01] MEDS ORDERED: PROPOFOL 200 MG/20 ML VIAL As Ordered ONE (23:37)
[2018-11-01] MEDS ORDERED: LIDOCAINE 2% INJ 100 MG/5 ML SDV (FOR ANES.) As Ordered ONE (23:37)
[2018-11-01] MEDS ORDERED: MIDAZOLAM INJ 2 MG/2 ML VIAL (J2250) As Ordered ONE (23:37)
[2018-11-01] MEDS ORDERED: fentaNYL 250 MCG/5 ML INJECTION (J3010) As Ordered ONE (23:37)
[2018-11-01] MEDS ORDERED: BUPIVACAINE HCL 0.25% 30 ML VIAL As Ordered ONE (23:41)
[2018-11-01] MEDS ORDERED: LIDOCAINE 1% SDV INJ 30 ML VIAL As Ordered ONE (23:41)
[2018-11-02] VITALS (8 sets, daily range): BP systolic 120–136; BP diastolic 66–87
[2018-11-02] MEDS ORDERED: UNASYN 1.5 GM VIAL As Ordered ONE (00:04)
--- NOTE | 2018-11-02 00:17 | HPEPDOC ---
General Surgery H&P Date of Admission November 01, 2018 History and Physical CHIEF COMPLAINT: abdominal pain HISTORY OF PRESENT ILLNESS: Patient presents to the ED with complaints of a couple of days history of vague right flank pain and 1 day history of abdominal pain. Patient reports she was in her usual state of health. He is about 1 PM this afternoon patient started having some initially vague crampy abdominal pain which later on turned sharp caused her to double over well she was at work. She reports some mild nausea with no vomiting fevers or chills. She denies any sick contacts. She went to the emergency room and was evaluated and was found to have evidence for acute appendicitis. ALLERGIES: Please see below. HOME MEDICATIONS: Please see below. PAST MEDICAL HISTORY: 1. diabetes 2. low back pain 3. hypertension 4. sleep apnea 5. Gastroesophageal Reflux Disease PAST SURGICAL HISTORY: 1. EGD, Colonoscopy 2. hysterectomy, laparoscopic 3. Left ovarian oophorectomy via a Pfannenstiel incision PERSONAL/SOCIAL HISTORY: [Denies smoking, alcohol use, or recreational drug use]. REVIEW OF SYSTEMS: GENERAL: [Denies chills, fatigue, fever, weight gain and weight loss]. HEENT: [Denies blurred vision and double vision. Denies ear symptoms. Denies hoarseness]. NECK: [Denies any neck pain]. CARDIOVASCULAR: [Denies chest pain and palpitations]. MUSCULOSKELETAL: Patient is being seen at the pain clinic for low back pain. SKIN: [Denies rash]. NEUROLOGIC: Reports intermittent history of headaches, migraines. PSYCHIATRIC: [Denies anxiety and depression]. ENDOCRINE: [Denies thyroid disease]. HEMATOLOGY/ONCOLOGY: [Denies any bleeding or clotting disorder]. HEART: [Denies any chest pains, palpitations, paroxysmal dyspnea, orthopnea]. PULMONARY: [Denies chronic cough, dyspnea and wheezing]. GASTROINTESTINAL: See HPI. Patient has had previous history of colonoscopy and upper endoscopy last year. Endoscopy shows evidence for gastritis. GENITOURINARY: [Denies dysuria, frequency, hematuria and nocturia]. ENDOCRINE: [Denies polydipsia, polyphagia, polyuria, heat or cold intolerance]. INFECTIOUS: [Denies any recent upper respiratory tract infection, UTI, need for use of antibiotics]. NUTRITION: [Reports good appetite]. PHYSICAL EXAMINATION: VITAL SIGNS: Please see below. GENERAL APPEARANCE: Patient seen laying in bed, pleasant, cooperative looks fairly comfortable. [Awake, alert, oriented]. HEENT: [Normocephalic, atraumatic. [place] palpebral conjunctivae. Anicteric sclerae. Lips moist]. CHEST: [No chest wall abnormalities. Normal respiratory motion/effort]. NECK: [Supple. No thyromegaly. No lymphadenopathies]. LUNGS: [Lung sounds are clear to auscultation bilaterally. No wheezing appreciated]. HEART: [No chest wall abnormalities. Heart rate and rhythm are regular with no murmurs]. ABDOMEN: Abdomen is moderately obese, soft, nondistended. She has a healed Pfannenstiel incision no evidence of incisional hernia. She has healed port site incisions. She is mildly tender over the right lower quadrant area with mild grimacing on deep palpation, no guarding. She nontender on other parts of the abdomen.. SKIN: [Warm, moist]. EXTREMITIES: [Extremities have no deformities. No edema identified]. NEUROLOGICAL: Awake, alert, oriented. ANCILLARIES: . LABORATORY DATA: Please see below. MICROBIOLOGY: Please see below. IMAGING: CT abdomen and pelvis .Acute appendicitis, with uppp-ww-ozhpkijn adjacent RLQ inflammation. No abscess. No bowel obstruction. No free air. Probable debris layering dependently in the urinary bladder. No hydronephrosis. IMPRESSION AND PLAN: Acute Appendicitis Patient's history and examination correlates with findings of acute appendicitis on the CT scan. This is showing enlarged, thickened appendix with associated. Initial inflammation. No evidence of abscess. Patient not showing any severe septic signs or symptoms nor generalized peritonitis. She will be taken to the operating room for planned laparoscopic appendectomy. I discussed with her risks and benefits of the procedure as well as other modalities of treatment including on surgery. Consent has been obtained. Patient's history shows allergy to penicillin. She reports this is mainly neck swelling. She will will be given a dose of Unasyn perioperatively. Vital Signs Vital Signs Date Time Temp Pulse Resp B/P (MAP) Pulse Ox O2 Delivery O2 Flow Rate FiO2 11/01/18 20:04 11/01/18 19:16 97.4 78 18 98 Room Air Laboratory Data Labs 24H Laboratory Tests 2 11/01/18 19:46: Urine Appearance HAZY, Urine Color YELLOW, Urine pH 6.0, Urine Specific [place] 1.025, Urine Protein NEGATIVE, Urine Glucose (UA) NEGATIVE, Urine Ketones TRACEH, Urine Urobilinogen 2.0H, Urine Bilirubin NEGATIVE, Urine Leukocyte Esterase TRACEH, Urine Blood NEGATIVE, Urine Nitrite NEGATIVE, Urine WBC (Auto) 1, Urine RBC (Auto) 2, Urine Hyaline Casts (Auto) 0, Urine Bacteria (Auto) NEGATIVE, Urine Squamous Epithelial Cells 4, Urine Mucus (Auto) SMALL, Urine Sperm (Auto) 11/01/18 20:55: Immature Granulocyte % (Auto) 0.1, White Blood Count 7.6, Red Blood Count 4.69, Hemoglobin 13.8, Hematocrit 41.7, Mean Corpuscular Volume 88.9, Mean Corpuscular Hemoglobin 29.4, Mean Corpuscular Hemoglobin Concent 33.1, Red Cell Distribution Width 13.2, Platelet Count 241, Neutrophils (%) (Auto) 58.8, Lymphocytes (%) (Auto) 31.4, Monocytes (%) (Auto) 7.9H, Eosinophils (%) (Auto) 1.5, Basophils (%) (Auto) 0.3, Neutrophils # (Auto) 4.4, Lymphocytes # (Auto) 2.4, Monocytes # (Auto) 0.6, Eosinophils # (Auto) 0.1, Basophils # (Auto) 0.0, Nucleated Red Blood Cells % (auto) 0.0, Anion Gap 6L, Glomerular Filtration Rate > 60.0, Calcium Level 8.9, Aspartate Amino Transf (AST/SGOT) 19, Alanine Aminotransfera se (ALT/SGPT) 35, Alkaline Phosphatase 79, Total Bilirubin 0.8, Direct Bilirubin 0.2, Total Protein 7.3, Albumin 4.1, Albumin/Globulin Ratio 1.28, Lipase 142 11/01/18 23:01: CBC/BMP Laboratory Tests 11/01/18 20:55 Red Blood Count 4.69, Mean Corpuscular Volume 88.9, Mean Corpuscular Hemoglobin 29.4, Mean Corpuscular Hemoglobin Concent 33.1, Red Cell Distribution Width 13.2, Neutrophils (%) (Auto) 58.8, Lymphocytes (%) (Auto) 31.4, Monocytes (%) (Auto) 7.9 H, Eosinophils (%) (Auto) 1.5, Basophils (%) (Auto) 0.3, Neutrophils # (Auto) 4.4, Lymphocytes # (Auto) 2.4, Monocytes # (Auto) 0.6, Eosinophils # (Auto) 0.1, Basophils # (Auto) 0.0 Home Medications Scheduled Dulaglutide (Trulicity) 1.5 Mg/0.5 Ml Pen.injctr, 1.5 MG SC 1XWK, (Reported) MONDAYS Lisinopril (Lisinopril) 20 Mg Tablet, 20 MG PO QHS, (Reported) Metformin HCl (Metformin HCl) 500 Mg Tablet, 500 MG PO DAILY, (Reported) Omeprazole (Omeprazole) 20 Mg Capsule.dr, 20 MG PO QHS, (Reported) Sertraline HCl (Sertraline HCl) 50 Mg Tablet, 50 MG PO QHS, (Reported) TAKES WITH 100MG FOR 150MG TOTAL Sertraline HCl (Sertraline HCl) 100 Mg Tablet, 100 MG PO QHS, (Reported) TAKES WITH 50MG FOR 150MG TOTAL Verapamil HCl (Verapamil Sr) 180 Mg Cap24h.pel, 180 MG PO QPM, (Reported) TAKES AT DINNERTIME Scheduled PRN Rizatriptan Benzoate (Maxalt) 10 Mg Tab, 10 MG PO BID PRN for MIGRAINE, (Reported) SECOND DOSE CAN BE ADMINISTERED 2 HOURS AFTER FIRST DOSE IF MIGRAINES ARE STILL PRESENT Allergies Coded Allergies: Penicillins (Verified Allergy, Unknown, 11/01/18) Sulfa (Sulfonamide Antibiotics) (Verified Allergy, Unknown, 11/01/18) moxifloxacin (Verified Allergy, Unknown, 11/01/18) PARKER HERNADEZ MD November 01, 2018 23:33
[2018-11-02] MEDS ORDERED: fentaNYL 100 MCG/2 ML INJECTION (J3010) As Ordered ONE (00:45)
--- NOTE | 2018-11-02 01:04 | REP ---
Clinical: Preoperative assessment . Comparison: 02/20/2014 . Findings: The mediastinum and cardiac silhouette are stable and within normal limits for portable technique. The lung valera are clear without acute consolidation, effusion, or pneumothorax. Skeletal structures are intact. Impression: No acute cardiopulmonary process appreciated. Electronically Signed by Venancio Melton MD 11/02/2018 12:56 A
[2018-11-02] MEDS ORDERED: KETOROLAC 60 MG/2 ML VIAL (J1885) As Ordered ONE (01:06)
[2018-11-02] MEDS ORDERED: GLYCOPYRROLATE INJ 0.2 MG/ML 2 ML VIAL As Ordered ONE (01:16)
[2018-11-02] MEDS ORDERED: NEOSTIGMINE 10 MG/10 ML VIAL (J2710) As Ordered ONE (01:16)
[2018-11-02] MEDS ORDERED: RIZATRIPTAN BENZOATE 10 MG TAB PO PRN (01:30)
[2018-11-02] MEDS ORDERED: ALBUTEROL SULFATE 2.5 MG/0.5 ML INH NEB SOLN As Ordered ONE (01:47)
[2018-11-02] MEDS ORDERED: METOCLOPRAMIDE INJ 10MG/2ML VIAL (J2765) IV PRN (02:00)
[2018-11-02] MEDS ORDERED: MEPERIDINE INJ 25 MG/ML VIAL (J2175) IV PRN (02:00)
[2018-11-02] MEDS ORDERED: ONDANSETRON 4MG/2ML VIAL (J2405) IV PRN (02:00)
[2018-11-02] MEDS ORDERED: PERCOCET 5MG/325MG TAB PO PRN ×2 (02:00→02:15)
[2018-11-02] MEDS ORDERED: LR 1,000 ML IV SCH (02:00)
[2018-11-02] MEDS ORDERED: fentaNYL 100 MCG/2 ML INJECTION (J3010) IV PRN (02:00)
[2018-11-02] MEDS ORDERED: MORPHINE 4 MG/ML 1ML VIAL/SYRINGE (J2270) IV PRN (02:15)
[2018-11-02] MEDS ORDERED: KETOROLAC 30 MG/ML VIAL (J1885) IV PRN (02:15)
[2018-11-02] MEDS ORDERED: ALBUTEROL SULFATE 2.5 MG/0.5 ML INH NEB SOLN INH ONE (02:30)
[2018-11-02] MEDS: LR 1,000 ML IV SCH ×2 (07:26→14:31)
[2018-11-02 07:35] LABS: BASO % 0.2 % (0.0-1.0); HEMATOCRIT 36.1 % (36.0-47.0); LYMPH # 0.6 10^3/uL (1.5-4.5); LYMPH % 8.7 % (24.0-44.0); MEAN CORPUSCULAR HEMOGLOBIN 29.3 pg (27.0-33.0); MEAN CORPUSCULAR HGB CONC 33.2 g/dl (32.0-36.5); MONO # 0.2 10^3/uL (0.0-0.8); MONO % 2.4 % (0.0-5.0); NEUTROPHILS # 5.8 10^3/uL (1.8-7.7); NEUTROPHILS % 88.4 % (36.0-66.0); PLATELET COUNT, AUTOMATED 197 10^3/uL (150-450); WHITE BLOOD COUNT 6.6 10^3/uL (4.0-10.0)
[2018-11-02 07:46] LABS: BLOOD UREA NITROGEN 9 MG/DL (7-18); CARBON DIOXIDE LEVEL 29 MEQ/L (21-32); CHLORIDE LEVEL 107 MEQ/L (98-107); CREATININE FOR GFR 0.81 MG/DL (0.55-1.30); GLOMERULAR FILTRATION RATE > 60.0 (>58); GLUCOSE, FASTING 248 MG/DL (70-100); POTASSIUM SERUM 4.3 MEQ/L (3.5-5.1); SODIUM LEVEL 140 MEQ/L (136-145)
--- NOTE | 2018-11-02 08:20 | ECGEPIP ---
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
[2018-11-02] MEDS: PERCOCET 5MG/325MG TAB PO PRN ×2 (08:55→13:06)
[2018-11-02] MEDS ORDERED: metFORMIN (GLUCOPHAGE) 500 MG TAB PO SCH (09:00)
[2018-11-02] MEDS ORDERED: PERCOCET PO (16:11)
[2018-11-02] MEDS ORDERED: LISINOPRIL 20 MG TAB PO SCH (21:00)
[2018-11-02] MEDS ORDERED: SERTRALINE HCL 50 MG TAB PO SCH (21:00)
[2018-11-02] MEDS ORDERED: SERTRALINE 100 MG TAB PO SCH (21:00)
== END 2018-11-02 15:07 | disposition home or self-care (01) ==
LOC: M ED 19:13 → M SDC 23:26 → M PED 11-02 02:32 → M SDC 11-02 15:07
PROVIDERS: ATTEND Surgery
DX: K35.890 Other acute appendicitis without perforation or gangrene (principal); E11.9 Type 2 diabetes mellitus without complications; M54.5 Low back pain; I10 Essential (primary) hypertension; G47.30 Sleep apnea, unspecified; K21.9 Gastro-esophageal reflux disease without esophagitis; Z79.84 Long term (current) use of oral hypoglycemic drugs; Z79.899 Other long term (current) drug therapy; Z88.0 Allergy status to penicillin; Z88.2 Allergy status to sulfonamides
CPT/HCPCS: 36415; 44970; 71045; 80048; 80076; 81001; 83690; 85025; 85610; 86850; 86900; 86901; 88302; 93005; 96374; 96375; 99284; C9113; J1100; J1885; J2250; J2405; J2710; J2765; J3010

== ENCOUNTER 2018-12-06 12:23 | Emergency (ER) | payer OTHER ==
[~2018-12-06] VITALS: Ht 162.6 cm; Wt 99.5 kg
[~2018-12-06 12:23] MED LIST changes: +LISI-538 PO; +METF-839 PO; +OMEP-218 PO; +PERCOCET PO; +SERT-138 PO; +SERT-155 PO; +TRUL0.5I SC; +VERA180C3 PO
[2018-12-06] MEDS ORDERED: ATOR1TAB21 PO (12:37)
[2018-12-06] MEDS ORDERED: NS 1,000 ML IV ONE (13:45)
[2018-12-06 13:46] LABS: BASO % 0.6 % (0.0-1.0); EOS # 0.1 10^3/uL (0.0-0.50); EOS % 2.4 % (0.0-3.0); HEMOGLOBIN 12.6 g/dl (12.0-15.5); LYMPH # 1.7 10^3/uL (1.5-4.5); LYMPH % 37.7 % (24.0-44.0); MEAN CORPUSCULAR HEMOGLOBIN 30.1 pg (27.0-33.0); MEAN CORPUSCULAR HGB CONC 34.1 g/dl (32.0-36.5); MEAN CORPUSCULAR VOLUME 88.5 fl (80.0-96.0); MONO # 0.5 10^3/uL (0.0-0.8); MONO % 10.6 % (0.0-5.0); NEUTROPHILS # 2.2 10^3/uL (1.8-7.7); NEUTROPHILS % 48.3 % (36.0-66.0); PLATELET COUNT, AUTOMATED 201 10^3/uL (150-450); RED BLOOD COUNT 4.18 10^6/uL (4.00-5.40); WHITE BLOOD COUNT 4.6 10^3/uL (4.0-10.0)
[2018-12-06 14:15] LABS: BLOOD UREA NITROGEN 7 MG/DL (7-18); CALCIUM LEVEL 8.5 MG/DL (8.5-10.1); CARBON DIOXIDE LEVEL 32 MEQ/L (21-32); CHLORIDE LEVEL 108 MEQ/L (98-107); CK-MB VALUE MASS 1.3 NG/ML (<3.6); CPK CREATINE PHOSPHOKINASE 84 U/L (26-192); FREE T4 0.73 NG/DL (0.76-1.46); GLOMERULAR FILTRATION RATE > 60.0 (>58); GLUCOSE, FASTING 100 MG/DL (70-100); MAGNESIUM LEVEL 2.1 MG/DL (1.8-2.4); MB/CK RELATIVE INDEX 1.55 (< OR =4); POTASSIUM SERUM 4.1 MEQ/L (3.5-5.1); SODIUM LEVEL 143 MEQ/L (136-145); TROPONIN I < 0.02 NG/ML (< 0.10)
--- NOTE | 2018-12-06 14:46 | REP ---
CHEST, TWO VIEWS: There is no evidence of acute infiltrate. No pleural effusion is seen. The heart is normal in size. The mediastinal silhouette is unremarkable. The visualized osseous structures are intact. There are mild degenerative changes of the spine. IMPRESSION: No acute pulmonary disease. Electronically Signed by Ferdinand Lambert MD 12/07/2018 12:37 P
--- NOTE | 2018-12-06 16:21 | REP ---
CT Head without contrast HISTORY: Syncope COMPARISON: 02/20/2014 There is no intraparenchymal hemorrhage, acute infarct, mass or midline shift. The ventricular system is normal in appearance. There is no extra cerebral collection. There is no fracture. The visualized sinuses are clear. IMPRESSION: There is no intracranial lesion. Electronically Signed by Mauri Waller MD 12/06/2018 04:13 P
[2018-12-06 16:45] VITALS: BP 121/74
--- NOTE | 2018-12-07 07:51 | ECGEPIP ---
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
== END 2018-12-06 16:58 | disposition home or self-care (01) ==
LOC: M ED 12:23 → EDBD 12:23 → M ED 16:58
DX: R55 Syncope and collapse (principal); E11.9 Type 2 diabetes mellitus without complications; I10 Essential (primary) hypertension; G47.30 Sleep apnea, unspecified; Z79.899 Other long term (current) drug therapy; Z79.84 Long term (current) use of oral hypoglycemic drugs; Z88.0 Allergy status to penicillin; Z88.1 Allergy status to other antibiotic agents; Z88.2 Allergy status to sulfonamides

== ENCOUNTER → 2019-08-24 | Outpatient (CLI) | payer OTHER ==
[~2019-08-24] MED LIST changes: +ATOR1TAB21 PO; +OMEP1CAP73; -OMEP20CA3; +ONDA-83; -ONDA4TAB5; -ROPI1TAB; +ROPI1TAB3; -SERT-155 PO; +SERT50TA29 PO
[2019-08-24 08:37] LABS: HEMOGLOBIN A1c 6.7 %
[2019-08-24 08:50] LABS: ALBUMIN 3.8 GM/DL (3.2-5.2); ALT/SGPT 34 U/L (12-78); BILIRUBIN,TOTAL 0.4 MG/DL (0.2-1.0); BLOOD UREA NITROGEN 10 MG/DL (7-18); CALCIUM LEVEL 8.7 MG/DL (8.5-10.1); CARBON DIOXIDE LEVEL 29 MEQ/L (21-32); CHLORIDE LEVEL 109 MEQ/L (98-107); CHOLESTEROL LEVEL 177 MG/DL (<200); CHOLESTEROL RISK RATIO 3.277 (<5); CREATININE FOR GFR 0.75 MG/DL (0.55-1.30); GLOMERULAR FILTRATION RATE > 60.0 (>58); GLUCOSE, FASTING 151 MG/DL (70-100); HDL CHOLESTEROL 54 MG/DL (>40); LDL CHOLESTEROL 90 MG/DL (<100); NON-HDL-C 123 MG/DL; POTASSIUM SERUM 4.2 MEQ/L (3.5-5.1); SODIUM LEVEL 142 MEQ/L (136-145); TOTAL PROTEIN 6.9 GM/DL (6.4-8.2); TRIGLYCERIDES LEVEL 167 MG/DL (<150)
== END ==
LOC: M LAB 07:26
PROVIDERS: ATTEND Physician Assistant
DX: E78.5 Hyperlipidemia, unspecified (principal); E11.9 Type 2 diabetes mellitus without complications; I10 Essential (primary) hypertension

== ENCOUNTER → 2019-12-13 | Outpatient (CLI) | payer OTHER ==
[~2019-12-13] MED LIST changes: +CYCL-707 PO; -CYCL10TA PO
[2019-12-13 10:09] LABS: BLOOD UREA NITROGEN 11 MG/DL (7-18); CALCIUM LEVEL 8.6 MG/DL (8.5-10.1); CARBON DIOXIDE LEVEL 27 MEQ/L (21-32); CHLORIDE LEVEL 110 MEQ/L (98-107); CREATININE FOR GFR 0.64 MG/DL (0.55-1.30); GLOMERULAR FILTRATION RATE > 60.0 (>58); GLUCOSE, FASTING 143 MG/DL (70-100); SODIUM LEVEL 142 MEQ/L (136-145)
== END ==
LOC: M LAB 08:27
PROVIDERS: ATTEND Orthopaedic Surgery
DX: I10 Essential (primary) hypertension (principal)

== ENCOUNTER → 2019-12-18 | Outpatient (CLI) | payer OTHER | LOC: M LABSMTC 10:28 | PROVIDERS: ATTEND Orthopaedic Surgery | DX: Z11.59 Encounter for screening for other viral diseases (principal); Z03.818 Encounter for observation for suspected exposure to other biological agents ruled out ==

== ENCOUNTER → 2020-01-04 | Outpatient (CLI) | payer OTHER ==
[2020-01-04 16:12] LABS: BASO % 0.3 % (0.0-1.0); EOS # 0.1 10^3/uL (0.0-0.5); EOS % 1.9 % (0.0-3.0); HEMATOCRIT 39.1 % (36.0-47.0); LYMPH # 2.2 10^3/uL (1.5-5.0); LYMPH % 31.9 % (24.0-44.0); MEAN CORPUSCULAR HEMOGLOBIN 29.3 pg (27.0-33.0); MEAN CORPUSCULAR HGB CONC 33.2 g/dl (32.0-36.5); MEAN CORPUSCULAR VOLUME 88.3 fl (80.0-96.0); MONO # 0.6 10^3/uL (0.0-0.8); MONO % 8.2 % (0.0-5.0); NEUTROPHILS % 57.4 % (36.0-66.0); PLATELET COUNT, AUTOMATED 249 10^3/uL (150-450); RED BLOOD COUNT 4.43 10^6/uL (4.00-5.40)
[2020-01-04 16:45] LABS: ERYTHROCYTE SEDIMENTATION RATE 12 mm/hr (0-20)
== END ==
LOC: M LAB 15:39
PROVIDERS: ATTEND Physician Assistant
DX: Z47.89 Encounter for other orthopedic aftercare (principal)

== ENCOUNTER → 2020-02-25 | Outpatient (CLI) | payer OTHER ==
[2020-02-25 10:03] LABS: HEMOGLOBIN A1c 7.4 %
[2020-02-25 14:59] LABS: ALBUMIN 3.7 GM/DL (3.2-5.2); ALT/SGPT 45 U/L (12-78); BILIRUBIN,TOTAL 0.6 MG/DL (0.2-1.0); BLOOD UREA NITROGEN 10 MG/DL (7-18); CALCIUM LEVEL 8.6 MG/DL (8.5-10.1); CARBON DIOXIDE LEVEL 28 MEQ/L (21-32); CHLORIDE LEVEL 108 MEQ/L (98-107); CHOLESTEROL LEVEL 169 MG/DL (<200); CHOLESTEROL RISK RATIO 2.864 (<5); CREATININE FOR GFR 0.84 MG/DL (0.55-1.30); GLOMERULAR FILTRATION RATE > 60.0 (>58); GLUCOSE, FASTING 184 MG/DL (70-100); HDL CHOLESTEROL 59 MG/DL (>40); LDL CHOLESTEROL 89 MG/DL (<100); NON-HDL-C 110 MG/DL; POTASSIUM SERUM 4.1 MEQ/L (3.5-5.1); SODIUM LEVEL 141 MEQ/L (136-145); TOTAL PROTEIN 6.7 GM/DL (6.4-8.2); TRIGLYCERIDES LEVEL 106 MG/DL (<150)
[2020-02-27 10:47] LABS: TOTAL 25(OH) VITAMIN D 21.8 NG/ML (30.0-100.0)
== END ==
LOC: M LAB 09:17
PROVIDERS: ATTEND Physician Assistant
DX: I10 Essential (primary) hypertension (principal); E78.5 Hyperlipidemia, unspecified; E11.9 Type 2 diabetes mellitus without complications; E55.9 Vitamin D deficiency, unspecified; G47.30 Sleep apnea, unspecified

== ENCOUNTER → 2020-04-20 | Outpatient (CLI) | payer OTHER ==
--- NOTE | 2020-04-20 13:31 | REP ---
INDICATION: lower back pain COMPARISON: None. TECHNIQUE: AP, lateral, bilateral oblique, and coned-down views of the lumbar spine. FINDINGS: Alignment and lordosis maintained. Vertebral bodies are intact. Disc spaces are relatively normal/age-appropriate. Minimal marginal spurring is appreciated. Mild facet arthropathy at L4-5 and L5-S1 noted. No acute fracture/compression injury or subluxation. No obvious spondylolysis or spondylolisthesis.. IMPRESSION: Essentially age-appropriate examination with minimal degenerative changes <Electronically signed by Venancio Melton > 04/20/20 [id number]
== END ==
LOC: M LAB 12:43 → M RAD 12:43
PROVIDERS: ATTEND Physician Assistant
DX: M54.5 Low back pain (principal)

== ENCOUNTER → 2020-09-04 | Outpatient (CLI) | payer OTHER ==
[~2020-09-04] MED LIST changes: -LISI-538 PO; +LISI20TA33 PO
[2020-09-04 07:41] LABS: HEMOGLOBIN A1c 8.1 %
[2020-09-04 07:43] LABS: ALBUMIN 3.8 GM/DL (3.2-5.2); ALT/SGPT 74 U/L (12-78); BILIRUBIN,TOTAL 0.6 MG/DL (0.2-1.0); BLOOD UREA NITROGEN 14 MG/DL (7-18); CALCIUM LEVEL 8.7 MG/DL (8.5-10.1); CARBON DIOXIDE LEVEL 28 MEQ/L (21-32); CHLORIDE LEVEL 106 MEQ/L (98-107); CHOLESTEROL LEVEL 175 MG/DL (<200); CREATININE FOR GFR 0.73 MG/DL (0.55-1.30); GLOMERULAR FILTRATION RATE > 60.0 (>58); GLUCOSE, FASTING 240 MG/DL (70-100); HDL CHOLESTEROL 70 MG/DL (>40); LDL CHOLESTEROL 88 MG/DL (<100); NON-HDL-C 105 MG/DL; POTASSIUM SERUM 4.1 MEQ/L (3.5-5.1); SODIUM LEVEL 138 MEQ/L (136-145); TOTAL PROTEIN 6.8 GM/DL (6.4-8.2); TRIGLYCERIDES LEVEL 87 MG/DL (<150)
== END ==
LOC: M LAB 06:50
PROVIDERS: ATTEND Physician Assistant
DX: E78.5 Hyperlipidemia, unspecified (principal); I10 Essential (primary) hypertension; E11.9 Type 2 diabetes mellitus without complications

== ENCOUNTER → 2020-10-15 | Outpatient (CLI) | payer OTHER ==
--- NOTE | 2020-10-15 14:47 | REP ---
INDICATION: PAIN IN RIGHT KNEE COMPARISON: None. TECHNIQUE: AP, lateral, bilateral oblique and sunrise views. FINDINGS: Advanced tricompartmental osteoarthritic degenerative changes include osteophytosis, subchondral sclerosis, joint space narrowing, and small elements of chondrocalcinosis. No acute fracture or dislocation. No definite effusion. IMPRESSION: Advanced tricompartmental osteoarthritic degenerative changes. <Electronically signed by Venancio Melton > 10/15/20 [id number]
== END ==
LOC: M RAD 14:20
PROVIDERS: ATTEND Physician Assistant
DX: M17.11 Unilateral primary osteoarthritis, right knee (principal)

== ENCOUNTER 2021-04-02 11:27 | Emergency (ER) | payer OTHER ==
[~2021-04-02] VITALS: Ht 160 cm; Wt 99.2 kg
[2021-04-02] MEDS ORDERED: FLUC200T2 (12:21)
[2021-04-02] MEDS ORDERED: NYST1POW9 (12:21)
[2021-04-02] MEDS ORDERED: TOPI25TA10 (12:21)
--- NOTE | 2021-04-02 12:58 | REP ---
INDICATION: pain after injury. COMPARISON: Comparison right knee radiographs October 15, 2020. TECHNIQUE: Five views of the right knee. FINDINGS: Five views of the right knee demonstrate moderate to advanced osteoarthritis affecting the medial and patellofemoral compartments with joint space narrowing and spur formation. There is mild lateral compartment spurring as well. No joint effusion or erosive changes seen. The osteoarthritic changes are radiographically stable from October 15, 2020 radiographs. No fracture or subluxation is seen IMPRESSION: Moderate 3 compartment osteoarthritis of the right knee unchanged from October 15, 2020. No fracture seen. <Electronically signed by Kt Valdez > 04/02/21 [id number]
[2021-04-02] MEDS ORDERED: ACETAMINOPHEN 500 MG TAB PO ONE (14:10)
--- NOTE | 2021-04-02 14:55 | REP ---
INDICATION: r/o dvt COMPARISON: None. TECHNIQUE: Lambert scale and color Doppler evaluation using linear high frequency transducer. FINDINGS: Ultrasound examination of the right lower extremity deep venous structures from the common femoral vein through the calf/ankle to include the peroneal, and tibial veins demonstrates normal compressibility flow and wave patterns in response to respiration and augmentation. There is no evidence for deep venous thrombosis. Contralateral CFV is patent and normal. IMPRESSION: No evidence for deep venous thrombosis. <Electronically signed by Venancio Melton > 04/02/21 [id number]
[2021-04-02 15:46] VITALS: BP 113/71
== END 2021-04-02 15:48 | disposition home or self-care (01) ==
LOC: M ED 11:27
DX: M17.11 Unilateral primary osteoarthritis, right knee (principal); S83.91XA Sprain of unspecified site of right knee, initial encounter; X50.0XXA Overexertion from strenuous movement or load, initial encounter; Y92.9 Unspecified place or not applicable; Y93.9 Activity, unspecified; Y99.0 Civilian activity done for income or pay; I10 Essential (primary) hypertension; E78.5 Hyperlipidemia, unspecified; G47.33 Obstructive sleep apnea (adult) (pediatric); E11.9 Type 2 diabetes mellitus without complications; E66.9 Obesity, unspecified; Z98.890 Other specified postprocedural states; Z88.0 Allergy status to penicillin; Z88.1 Allergy status to other antibiotic agents; Z88.2 Allergy status to sulfonamides; Z79.899 Other long term (current) drug therapy

== ENCOUNTER → 2022-06-01 | Outpatient (CLI) | payer OTHER ==
[~2022-06-01] MED LIST changes: +FLUC200T4; -MAXA10TA14 PO; +NYST1POW9; +OMEP-173 PO; -OMEP-218 PO; +RIZA10TA64 PO; +TOPI25TA10
[2022-06-01 09:24] LABS: ALBUMIN 3.6 G/DL (3.2-5.2); ALKALINE PHOSPHATASE 74 U/L (46-116); ALT/SGPT 34 U/L (7.0-40); AST/SGOT 19 U/L (<34); BILIRUBIN,TOTAL 0.6 MG/DL (0.3-1.2); BLOOD UREA NITROGEN 11 MG/DL (9-23); CALCIUM LEVEL 8.5 MG/DL (8.5-10.1); CARBON DIOXIDE LEVEL 26 MMOL/L (20-31); CHLORIDE LEVEL 108 MMOL/L (98-107); CHOLESTEROL LEVEL 175 MG/DL (<200); CHOLESTEROL RISK RATIO 2.83 (<5); CREATININE FOR GFR 0.55 MG/DL (0.55-1.30); GLOMERULAR FILTRATION RATE > 60.0 (>58); GLUCOSE, FASTING 210 MG/DL (60-100); HDL CHOLESTEROL 61.8 MG/DL (>40); LDL CHOLESTEROL 100.4 MG/DL (<100); NON-HDL-C 113 MG/DL; POTASSIUM SERUM 4.1 MMOL/L (3.5-5.1); SODIUM LEVEL 141 MMOL/L (136-145); TOTAL PROTEIN 6.2 G/DL (5.7-8.2); TRIGLYCERIDES LEVEL 64 MG/DL (<150)
== END ==
LOC: M LAB 08:19
PROVIDERS: ATTEND Physician Assistant
DX: E78.5 Hyperlipidemia, unspecified (principal); E11.9 Type 2 diabetes mellitus without complications; I10 Essential (primary) hypertension

== ENCOUNTER → 2022-10-26 | Outpatient (CLI) | payer OTHER ==
[2022-10-26 10:28] LABS: HEMATOCRIT 44.6 % (36.0-47.0); HEMOGLOBIN 14.9 g/dl (12.0-15.5); MEAN CORPUSCULAR HEMOGLOBIN 30.3 pg (27.0-33.0); MEAN CORPUSCULAR HGB CONC 33.4 g/dl (32.0-36.5); MEAN CORPUSCULAR VOLUME 90.7 fl (80.0-96.0); PLATELET COUNT, AUTOMATED 236 10^3/uL (150-450); RED BLOOD COUNT 4.92 10^6/uL (4.00-5.40); WHITE BLOOD COUNT 5.3 10^3/uL (4.0-10.0)
[2022-10-26 10:46] LABS: HEMOGLOBIN A1c 7.1 % (4.0-6.0)
[2022-10-26 11:02] LABS: ALBUMIN 3.5 G/DL (3.2-5.2); ALKALINE PHOSPHATASE 64 U/L (46-116); ALT/SGPT 34 U/L (7.0-40); AST/SGOT 13 U/L (<34); BLOOD UREA NITROGEN 7 MG/DL (9-23); CALCIUM LEVEL 8.8 MG/DL (8.5-10.1); CARBON DIOXIDE LEVEL 26 MMOL/L (20-31); CHLORIDE LEVEL 109 MMOL/L (98-107); CHOLESTEROL LEVEL 237 MG/DL (<200); CHOLESTEROL RISK RATIO 3.59 (<5); CREATININE FOR GFR 0.61 MG/DL (0.55-1.30); GLOMERULAR FILTRATION RATE > 60.0 (>58); GLUCOSE, FASTING 145 MG/DL (60-100); HDL CHOLESTEROL 65.9 MG/DL (>40); LDL CHOLESTEROL 145.5 MG/DL (<100); NON-HDL-C 171.1 MG/DL; POTASSIUM SERUM 3.9 MMOL/L (3.5-5.1); SODIUM LEVEL 140 MMOL/L (136-145); TOTAL PROTEIN 6.2 G/DL (5.7-8.2); TRIGLYCERIDES LEVEL 128 MG/DL (<150)
[2022-10-26 11:04] LABS: THYROID STIMULATING HORMONE 0.947 uIU/ML (0.55-4.78)
== END ==
LOC: M LAB 09:50
PROVIDERS: ATTEND Physician Assistant
DX: E11.9 Type 2 diabetes mellitus without complications (principal); I10 Essential (primary) hypertension; E78.5 Hyperlipidemia, unspecified

== ENCOUNTER → 2022-12-13 | Outpatient (CLI) | payer OTHER | LOC: M RAD 09:12 | PROVIDERS: ATTEND Nurse Practitioner Family | DX: M46.1 Sacroiliitis, not elsewhere classified (principal) ==

== ENCOUNTER → 2023-01-27 | Outpatient (CLI) | payer OTHER ==
[~2023-01-27] MED LIST changes: -ROPI1TAB3; +ROPI1TAB73
[2023-01-27 07:25] LABS: HEMATOCRIT 42.9 % (36.0-47.0); MEAN CORPUSCULAR HEMOGLOBIN 29.2 pg (27.0-33.0); MEAN CORPUSCULAR HGB CONC 32.6 g/dl (32.0-36.5); MEAN CORPUSCULAR VOLUME 89.6 fl (80.0-96.0); PLATELET COUNT, AUTOMATED 216 10^3/uL (150-450); RED BLOOD COUNT 4.79 10^6/uL (4.00-5.40); WHITE BLOOD COUNT 4.5 10^3/uL (4.0-10.0)
[2023-01-27 07:51] LABS: ALBUMIN 3.6 G/DL (3.2-5.2); ALKALINE PHOSPHATASE 67 U/L (46-116); ALT/SGPT 26 U/L (7.0-40); AST/SGOT 8 U/L (<34); BILIRUBIN,TOTAL 0.4 MG/DL (0.3-1.2); BLOOD UREA NITROGEN 8 MG/DL (9-23); CALCIUM LEVEL 8.9 MG/DL (8.5-10.1); CARBON DIOXIDE LEVEL 30 MMOL/L (20-31); CHLORIDE LEVEL 108 MMOL/L (98-107); CHOLESTEROL LEVEL 273 MG/DL (<200); CHOLESTEROL RISK RATIO 5.05 (<5); GLOMERULAR FILTRATION RATE > 60.0 (>58); GLUCOSE, FASTING 129 MG/DL (60-100); LDL CHOLESTEROL 176.2 MG/DL (<100); POTASSIUM SERUM 3.9 MMOL/L (3.5-5.1); SODIUM LEVEL 146 MMOL/L (136-145); TOTAL PROTEIN 6.2 G/DL (5.7-8.2); TRIGLYCERIDES LEVEL 214 MG/DL (<150)
[2023-01-27 07:54] LABS: HEMOGLOBIN A1c 7.7 % (4.0-6.0)
== END ==
LOC: M LAB 07:07
PROVIDERS: ATTEND Physician Assistant
DX: E78.5 Hyperlipidemia, unspecified (principal); I10 Essential (primary) hypertension; E11.9 Type 2 diabetes mellitus without complications

== ENCOUNTER → 2023-05-02 | Outpatient (CLI) | payer OTHER ==
[2023-05-02 09:37] LABS: HEMATOCRIT 39.1 % (36.0-47.0); HEMOGLOBIN 13.5 g/dl (12.0-15.5); MEAN CORPUSCULAR HEMOGLOBIN 30.4 pg (27.0-33.0); MEAN CORPUSCULAR HGB CONC 34.5 g/dl (32.0-36.5); MEAN CORPUSCULAR VOLUME 88.1 fl (80.0-96.0); PLATELET COUNT, AUTOMATED 194 10^3/uL (150-450); RED BLOOD COUNT 4.44 10^6/uL (4.00-5.40); WHITE BLOOD COUNT 4.6 10^3/uL (4.0-10.0)
[2023-05-02 09:56] LABS: HEMOGLOBIN A1c 6.8 % (4.0-6.0)
[2023-05-02 10:04] LABS: ALBUMIN 3.6 G/DL (3.2-5.2); ALKALINE PHOSPHATASE 65 U/L (46-116); ALT/SGPT 27 U/L (7.0-40); AST/SGOT 16 U/L (<34); BILIRUBIN,TOTAL 0.8 MG/DL (0.3-1.2); BLOOD UREA NITROGEN 9 MG/DL (9-23); CALCIUM LEVEL 8.6 MG/DL (8.5-10.1); CARBON DIOXIDE LEVEL 28 MMOL/L (20-31); CHLORIDE LEVEL 110 MMOL/L (98-107); CHOLESTEROL LEVEL 229 MG/DL (<200); CHOLESTEROL RISK RATIO 3.86 (<5); CREATININE FOR GFR 0.56 MG/DL (0.55-1.30); GLOMERULAR FILTRATION RATE > 60.0 (>58); GLUCOSE, FASTING 124 MG/DL (60-100); HDL CHOLESTEROL 59.3 MG/DL (>40); LDL CHOLESTEROL 148.7 MG/DL (<100); NON-HDL-C 169.7 MG/DL; POTASSIUM SERUM 4.3 MMOL/L (3.5-5.1); SODIUM LEVEL 144 MMOL/L (136-145); TOTAL PROTEIN 6.3 G/DL (5.7-8.2); TRIGLYCERIDES LEVEL 105 MG/DL (<150)
[2023-05-02 10:06] LABS: THYROID STIMULATING HORMONE 0.818 uIU/ML (0.55-4.78)
== END ==
LOC: M LAB 09:12
PROVIDERS: ATTEND Physician Assistant
DX: E11.9 Type 2 diabetes mellitus without complications (principal)

== ENCOUNTER → 2023-06-19 | Outpatient (CLI) | payer OTHER | LOC: M RAD 08:24 | PROVIDERS: ATTEND Physician Assistant | DX: M47.892 Other spondylosis, cervical region (principal); M25.511 Pain in right shoulder ==

== ENCOUNTER → 2023-08-01 | Outpatient (CLI) | payer OTHER ==
[2023-08-01 09:55] LABS: CHOLESTEROL RISK RATIO 3.4 (<5); HDL CHOLESTEROL 66.9 MG/DL (>40); LDL CHOLESTEROL 131.1 MG/DL (<100); NON-HDL-C 161.1 MG/DL
[2023-08-03 06:50] LABS: HEMOGLOBIN A1c 7.6 % (4.0-6.0)
== END ==
LOC: M LAB 08:12
PROVIDERS: ATTEND Physician Assistant
DX: E11.9 Type 2 diabetes mellitus without complications (principal)

== ENCOUNTER 2023-10-18 23:48 | Emergency (ER) | payer OTHER ==
[~2023-10-18] VITALS: Ht 162.6 cm; Wt 95.6 kg
[2023-10-19 04:08] VITALS: BP 109/61; TEMP 96.5; O2SAT 100
== END 2023-10-19 05:50 | disposition left against medical advice (07) ==
LOC: M ED 23:48
DX: Z53.21 Procedure and treatment not carried out due to patient leaving prior to being seen by health care provider (principal)

== ENCOUNTER → 2023-10-29 | Outpatient (CLI) | payer OTHER | LOC: M RAD 08:11 | PROVIDERS: ATTEND Pain Medicine Interventional Pain Medicine | DX: M54.16 Radiculopathy, lumbar region (principal) ==

== ENCOUNTER → 2023-11-01 | Outpatient (CLI) | payer OTHER ==
[2023-11-01 08:37] LABS: BASO # 0.1 10^3/uL (0.0-0.2); BASO % 0.8 % (0.0-1.0); EOS # 0.1 10^3/uL (0.0-0.5); EOS % 2.2 % (0.0-3.0); HEMATOCRIT 44.2 % (36.0-47.0); HEMOGLOBIN 15.1 g/dl (12.0-15.5); LYMPH # 1.9 10^3/uL (1.5-5.0); LYMPH % 32.1 % (24.0-44.0); MEAN CORPUSCULAR HEMOGLOBIN 29.4 pg (27.0-33.0); MEAN CORPUSCULAR HGB CONC 34.2 g/dl (32.0-36.5); MEAN CORPUSCULAR VOLUME 86.2 fl (80.0-96.0); MONO # 0.5 10^3/uL (0.0-0.8); MONO % 7.5 % (2.0-8.0); NEUTROPHILS # 3.4 10^3/uL (1.5-8.5); NEUTROPHILS % 57.1 % (36.0-66.0); PLATELET COUNT, AUTOMATED 244 10^3/uL (150-450); RED BLOOD COUNT 5.13 10^6/uL (4.00-5.40)
[2023-11-01 08:54] LABS: HEMOGLOBIN A1c 8.4 % (4.0-6.0)
[2023-11-01 09:11] LABS: ALBUMIN 3.5 G/DL (3.2-5.2); ALKALINE PHOSPHATASE 75 U/L (46-116); ALT/SGPT 44 U/L (7.0-40); AST/SGOT 18 U/L (<34); BILIRUBIN,TOTAL 0.7 MG/DL (0.3-1.2); BLOOD UREA NITROGEN 10 MG/DL (9-23); CALCIUM LEVEL 8.8 MG/DL (8.5-10.1); CARBON DIOXIDE LEVEL 29 MMOL/L (20-31); CHLORIDE LEVEL 107 MMOL/L (98-107); CHOLESTEROL LEVEL 202 MG/DL (<200); CHOLESTEROL RISK RATIO 3.32 (<5); CREATININE FOR GFR 0.67 MG/DL (0.55-1.30); GLOMERULAR FILTRATION RATE > 60.0 (>58); GLUCOSE, FASTING 203 MG/DL (60-100); HDL CHOLESTEROL 60.8 MG/DL (>40); NON-HDL-C 141.2 MG/DL; POTASSIUM SERUM 4.1 MMOL/L (3.5-5.1); SODIUM LEVEL 141 MMOL/L (136-145); TOTAL PROTEIN 6.5 G/DL (5.7-8.2); TRIGLYCERIDES LEVEL 151 MG/DL (<150)
== END ==
LOC: M LAB 08:18
PROVIDERS: ATTEND Physician Assistant
DX: E11.9 Type 2 diabetes mellitus without complications (principal); I10 Essential (primary) hypertension; E78.5 Hyperlipidemia, unspecified

== ENCOUNTER → 2023-11-28 | Outpatient (CLI) | payer OTHER ==
[2023-11-28 09:29] LABS: HEMATOCRIT 41.6 % (36.0-47.0); HEMOGLOBIN 14.1 g/dl (12.0-15.5); MEAN CORPUSCULAR HEMOGLOBIN 29.7 pg (27.0-33.0); MEAN CORPUSCULAR HGB CONC 33.9 g/dl (32.0-36.5); MEAN CORPUSCULAR VOLUME 87.8 fl (80.0-96.0); PLATELET COUNT, AUTOMATED 216 10^3/uL (150-450); RED BLOOD COUNT 4.74 10^6/uL (4.00-5.40); WHITE BLOOD COUNT 4.6 10^3/uL (4.0-10.0)
[2023-11-28 09:35] LABS: ERYTHROCYTE SEDIMENTATION RATE 8 mm/hr (0-20)
[2023-11-28 09:40] LABS: PROTHROMBIN TIME 12.9 SECONDS (12.5-14.5)
[2023-11-28 09:57] LABS: ALBUMIN 3.9 G/DL (3.2-5.2); ALKALINE PHOSPHATASE 70 U/L (46-116); ALT/SGPT 24 U/L (7.0-40); AST/SGOT 19 U/L (<34); BILIRUBIN,TOTAL 0.7 MG/DL (0.3-1.2); BLOOD UREA NITROGEN 9 MG/DL (9-23); CALCIUM LEVEL 9.2 MG/DL (8.5-10.1); CARBON DIOXIDE LEVEL 27 MMOL/L (20-31); CHLORIDE LEVEL 107 MMOL/L (98-107); CREATININE FOR GFR 0.69 MG/DL (0.55-1.30); GLOMERULAR FILTRATION RATE > 60.0 (>58); GLUCOSE, FASTING 157 MG/DL (60-100); SODIUM LEVEL 140 MMOL/L (136-145); TOTAL PROTEIN 6.4 G/DL (5.7-8.2)
== END ==
LOC: M RAD 08:14
PROVIDERS: ATTEND Orthopaedic Surgery
DX: Z01.818 Encounter for other preprocedural examination (principal); M17.11 Unilateral primary osteoarthritis, right knee

== ENCOUNTER → 2024-03-01 | Outpatient (CLI) | payer OTHER ==
[2024-03-01 16:33] LABS: HEMOGLOBIN A1c 7.2 % (4.0-6.0)
[2024-03-01 16:46] LABS: ALKALINE PHOSPHATASE 84 U/L (46-116); ALT/SGPT 30 U/L (7.0-40); AST/SGOT 14 U/L (<34); BILIRUBIN,TOTAL 0.4 MG/DL (0.3-1.2); BLOOD UREA NITROGEN 9 MG/DL (9-23); CALCIUM LEVEL 8.5 MG/DL (8.5-10.1); CARBON DIOXIDE LEVEL 25 MMOL/L (20-31); CHLORIDE LEVEL 107 MMOL/L (98-107); CHOLESTEROL LEVEL 184 MG/DL (<200); CHOLESTEROL RISK RATIO 3.13 (<5); CREATININE FOR GFR 0.66 MG/DL (0.55-1.30); GLOMERULAR FILTRATION RATE > 60.0 (>58); HDL CHOLESTEROL 58.6 MG/DL (>40); LDL CHOLESTEROL 75.6 MG/DL (<100); NON-HDL-C 125.4 MG/DL; POTASSIUM SERUM 3.8 MMOL/L (3.5-5.1); SODIUM LEVEL 139 MMOL/L (136-145); TOTAL PROTEIN 6.8 G/DL (5.7-8.2); TRIGLYCERIDES LEVEL 249 MG/DL (<150)
[2024-03-02 06:47] LABS: GLUCOSE, FASTING 148 MG/DL (60-100)
== END ==
LOC: M LAB 15:36
PROVIDERS: ATTEND Physician Assistant
DX: E78.5 Hyperlipidemia, unspecified (principal); E11.9 Type 2 diabetes mellitus without complications; I10 Essential (primary) hypertension

== ENCOUNTER → 2024-03-26 | Outpatient (CLI) | payer OTHER | LOC: M RAD 08:39 → M LAB 08:39 | PROVIDERS: ATTEND Physician Assistant | DX: M25.511 Pain in right shoulder (principal) ==

== ENCOUNTER → 2024-05-31 | Outpatient (CLI) | payer OTHER ==
[~2024-05-31] MED LIST changes: +FLUC-1; -FLUC200T4; +NYST1POW3; -NYST1POW9
[2024-05-31 16:18] LABS: HEMOGLOBIN A1c 8.1 % (4.0-6.0)
== END ==
LOC: M LAB 15:27
PROVIDERS: ATTEND Physician Assistant
DX: E11.9 Type 2 diabetes mellitus without complications (principal)

== ENCOUNTER → 2024-08-27 | Outpatient (CLI) | payer OTHER ==
[2024-08-27 09:42] LABS: BASO % 0.7 % (0.0-1.0); EOS # 0.1 10^3/uL (0.0-0.5); EOS % 1.8 % (0.0-3.0); HEMATOCRIT 43.2 % (36.0-47.0); HEMOGLOBIN 13.7 g/dl (12.0-15.5); LYMPH # 1.9 10^3/uL (1.5-5.0); LYMPH % 32.1 % (24.0-44.0); MEAN CORPUSCULAR HEMOGLOBIN 28.1 pg (27.0-33.0); MEAN CORPUSCULAR HGB CONC 31.7 g/dl (32.0-36.5); MEAN CORPUSCULAR VOLUME 88.5 fl (80.0-96.0); MONO # 0.4 10^3/uL (0.0-0.8); MONO % 6.2 % (2.0-8.0); NEUTROPHILS # 3.5 10^3/uL (1.5-8.5); PLATELET COUNT, AUTOMATED 220 10^3/uL (150-450); RED BLOOD COUNT 4.88 10^6/uL (4.00-5.40)
[2024-08-27 10:07] LABS: ALBUMIN 3.5 G/DL (3.2-5.2); ALKALINE PHOSPHATASE 59 U/L (35-104); ALT/SGPT 48 U/L (7.0-40); AST/SGOT 27 U/L (<34); BILIRUBIN,TOTAL 0.5 MG/DL (0.3-1.2); BLOOD UREA NITROGEN 10 MG/DL (9-23); CALCIUM LEVEL 8.8 MG/DL (8.5-10.1); CARBON DIOXIDE LEVEL 28 MMOL/L (20-31); CHLORIDE LEVEL 105 MMOL/L (98-107); CHOLESTEROL LEVEL 181 MG/DL (<200); CHOLESTEROL RISK RATIO 2.82 (<5); CREATININE FOR GFR 0.67 MG/DL (0.55-1.30); GLOMERULAR FILTRATION RATE > 60.0 (>58); GLUCOSE, FASTING 128 MG/DL (60-100); HDL CHOLESTEROL 64.1 MG/DL (>40); LDL CHOLESTEROL 89.7 MG/DL (<100); NON-HDL-C 116.9 MG/DL; POTASSIUM SERUM 4.5 MMOL/L (3.5-5.1); SODIUM LEVEL 144 MMOL/L (136-145); TOTAL PROTEIN 6.4 G/DL (5.7-8.2); TRIGLYCERIDES LEVEL 136 MG/DL (<150)
== END ==
LOC: M LAB 08:37
PROVIDERS: ATTEND Physician Assistant
DX: E11.9 Type 2 diabetes mellitus without complications (principal); E78.5 Hyperlipidemia, unspecified; I10 Essential (primary) hypertension

== ENCOUNTER → 2025-03-01 | Outpatient (CLI) | payer OTHER ==
[~2025-03-01] MED LIST changes: +DOXY-441 PO; +FARX1TAB3 PO; -FLUC-1; +FLUC-1 PO; +GABA-1172 PO; +LISI5TAB11 PO; -NYST1POW3; +NYST1POW3 TOP; +PERC5TAB12 PO; +PITA4TAB2 PO; +SEMA2PEN SUBQ; +TOPI-21 PO; +TOPI-256; -TOPI25TA10; -VERA180C3 PO; +VERA180C5 PO; +ZOLO100T PO
[2025-03-01 09:07] LABS: ESTIMATED AVERAGE GLUCOSE 126.0 MG/DL (60-110)
== END ==
LOC: M LAB 07:44
PROVIDERS: ATTEND Physician Assistant
DX: E11.9 Type 2 diabetes mellitus without complications (principal)

== ENCOUNTER → 2025-05-27 | Outpatient (CLI) | payer OTHER ==
[2025-05-27 09:11] LABS: ESTIMATED AVERAGE GLUCOSE 143.0 MG/DL (60-110)
[2025-05-27 09:13] LABS: ALT/SGPT 75 U/L (7.0-40); AST/SGOT 27 U/L (<34); CALCIUM LEVEL 9.1 MG/DL (8.5-10.1); CARBON DIOXIDE LEVEL 28 MMOL/L (20-31); CHLORIDE LEVEL 105 MMOL/L (98-107); CHOLESTEROL LEVEL 219 MG/DL (<200); CHOLESTEROL RISK RATIO 2.61 (<5); CREATININE FOR GFR 0.73 MG/DL (0.55-1.30); GLOMERULAR FILTRATION RATE > 90.0 (>58); LDL CHOLESTEROL 103.1 MG/DL (<100); NON-HDL-C 135.3 MG/DL; POTASSIUM SERUM 4.4 MMOL/L (3.5-5.1); SODIUM LEVEL 142 MMOL/L (136-145); TRIGLYCERIDES LEVEL 161 MG/DL (<150)
[2025-05-27 09:16] LABS: TOTAL 25(OH) VITAMIN D 18.7 NG/ML (20.0-100.0)
== END ==
LOC: M LAB 08:16
PROVIDERS: ATTEND Physician Assistant
DX: I10 Essential (primary) hypertension (principal); E11.9 Type 2 diabetes mellitus without complications; E55.9 Vitamin D deficiency, unspecified